=== PATIENT | female | born 1970 | race Caucasian/White ===

== ENCOUNTER 2019-07-20 13:21 | Emergency (ER) | payer MEDICAID ==
[~2019-07-20] VITALS: Ht 160 cm; Wt 99.2 kg
[~2019-07-20 13:21] MED LIST: LEVO300T6 PO; LORA-269 PO; LURA80TA3 PO; ZOLP10TA PO
[2019-07-20] MEDS ORDERED: LORazepam 1 MG tablet PO ONE (14:30)
[2019-07-20 14:51] LABS: URINE HCG NEGATIVE (NEG)
[2019-07-20 14:51] LABS: BASOPHILS # (AUTO) 0.1 X10'3 (0-0.2); BASOPHILS % (AUTO) 0.8 % (0-1); EOSINOPHILS # (AUTO) 0.3 X10'3 (0-0.9); EOSINOPHILS % (AUTO) 2.9 % (0-6); HEMATOCRIT 39.3 % (35.0-45.0); LYMPHOCYTES # (AUTO) 2.6 X10'3 (1.1-4.8); LYMPHOCYTES % (AUTO) 29.3 % (21-51); MEAN CORPUSCULAR HEMOGLOBIN 28.1 PG (27.0-31.0); MEAN CORPUSCULAR HGB CONC 33.1 g/dL (33.0-36.5); MEAN CORPUSCULAR VOLUME 84.8 FL (78-98); MEAN PLATELET VOLUME 7.5 FL (7.4-10.4); MONOCYTES # (AUTO) 0.4 X10'3 (0-0.9); NEUTROPHILS # (AUTO) 5.5 X10'3 (1.8-7.7); PLATELET COUNT 347 X10'3 (140-440); RED BLOOD COUNT 4.63 X10'6 (4.20-5.60); RED CELL DISTRIBUTION WIDTH 16.5 % (11.5-14.5); WHITE BLOOD COUNT 8.8 X10'3 (4.5-11.0)
[2019-07-20 14:56] LABS: URINE AMPHETAMINE SCREEN POSITIVE (Neg); URINE BARBITUATE SCREEN NEGATIVE (Neg); URINE BENZODIAZEPINES SCREEN POSITIVE (Neg); URINE CANNABINOID SCREEN POSITIVE (Neg); URINE COCAINE SCREEN NEGATIVE (Neg); URINE METHADONE SCREEN NEGATIVE (Neg); URINE OPIATE SCREEN NEGATIVE (Neg); URINE PHENCYCLIDINE SCREEN NEGATIVE (Neg)
--- NOTE | 2019-07-20 15:01 | NUR ---
PT WAS QUIETLY SLEEPING. NO ACUTE DISTRESS NOTED AT THIS TIME
[2019-07-20 15:05] LABS: ALANINE AMINOTRANSFERASE 20 U/L (12-78); ALBUMIN 3.5 G/DL (3.4-5.0); ALBUMIN/GLOBULIN RATIO 0.9 (1.1-1.5); ALKALINE PHOSPHATASE 83 IU/L (46-116); ANION GAP 4 (8-16); ASPARTATE AMINO TRANSFERASE 14 U/L (10-37); BILIRUBIN,TOTAL 0.1 MG/DL (0.1-1.0); BLOOD UREA NITROGEN 10 MG/DL (7-18); BUN/CREATININE RATIO 11.4 (6.6-38.0); CALCIUM 8.7 MG/DL (8.5-10.1); CHLORIDE 109 MMOL/L (99-107); CREATININE 0.88 MG/DL (0.40-0.90); GLUCOSE 75 MG/DL (70-104); POTASSIUM 3.6 MMOL/L (3.5-5.1); SODIUM 144 MMOL/L (135-145); TOTAL CARBON DIOXIDE 31.1 MMOL/L (24-32); TOTAL PROTEIN 7.3 G/DL (6.4-8.2); eGFR 69 ML/MIN
--- NOTE | 2019-07-20 15:08 | NUR ---
PT STATES, IM OUT OF MEDS, THEY WERE LOST OR STOLEN. WHEN ASKED WHAT YOUR PLAN IS. PT STATES, I JUST WANT TO DRIVE AWAY AND NEVER COME BACK.
[2019-07-20 15:15] LABS: ETHANOL < 0.010 GM/DL (0.0-0.010)
--- NOTE | 2019-07-20 19:34 | NUR ---
pt up ambulating to the br. requested a nicotine patch. will let doc know.
[2019-07-20] MEDS ORDERED: nicotine 14mg patch - 24hr TD ONE (19:45)
--- NOTE | 2019-07-20 20:00 | NUR ---
spoke with dr. teefs please see new orders.
[2019-07-20] MEDS ORDERED: CLON-528 PO (20:13)
[2019-07-20] MEDS ORDERED: PARO-62 PO (20:13)
[2019-07-20] MEDS ORDERED: clonazePAM 0.5mg tablet PO PRN ×2 (20:25→20:30)
[2019-07-20] MEDS ORDERED: zolpidem 5mg tablet PO PRN ×2 (20:25→20:31)
[2019-07-20] MEDS ORDERED: non-formulary drug (Zolpidem Tartrate (Ambien) 1 TAB) PO PRN (20:30)
[2019-07-21 00:51] LABS: CLARITY,URINE CLEAR (Clear); COLOR,URINE YELLOW (Yellow); GLUCOSE, URINE NEGATIVE (Neg); KETONES,URINE NEGATIVE (Neg); LEUKOCYTE ESTERASE ,URINE TRACE (Neg); NITRITES, URINE NEGATIVE (Neg); OCCULT BLOOD,URINE NEGATIVE (Neg); PROTEIN,URINE NEGATIVE (Neg); UROBILINOGEN,URINE 0.2 E.U/dL (0.2-1.0)
[2019-07-21 00:56] LABS: UA COLLECTION TYPE NON-SPECIFIED
[2019-07-21 00:57] LABS: AMORPHOUS PHOSPHATES 1+; BACTERIA,URINE NONE SEEN /HPF (Neg); MUCUS STRANDS NONE SEEN /LPF (Neg); RBC,URINE NONE SEEN /HPF (0-2); SQUAMOUS EPITHELIAL CELL,UR MANY /LPF (FEW); WBC,URINE 0-4 /HPF (0-4)
[2019-07-21 05:46] VITALS: BP 96/54
[2019-07-21] MEDS ORDERED: levoTHYROXINE 100mcg tablet PO SCH (07:00)
[2019-07-21] MEDS ORDERED: PARoxetine 20mg tablet PO SCH ×2 (08:00)
[2019-07-21] MEDS ORDERED: LEVOTHYROXINE SODIUM PO SCH (08:00)
[2019-07-21] MEDS ORDERED: nicotine 21mg patch - 24 hr TD ONE (09:50)
--- NOTE | 2019-07-21 09:55 | NUR ---
Nicotine patch from last night on left arm is currently off.
[2019-07-21] MEDS ORDERED: LEVO100T PO (23:16)
[2019-07-22] MEDS ORDERED: CITA10TA9 PO (15:25)
== END 2019-07-21 11:31 | disposition home or self-care (01) ==
LOC: ER 13:22
DX: F41.9 Anxiety disorder, unspecified (principal); R45.851 Suicidal ideations; K21.9 Gastro-esophageal reflux disease without esophagitis; E03.9 Hypothyroidism, unspecified; F31.9 Bipolar disorder, unspecified; F17.210 Nicotine dependence, cigarettes, uncomplicated; F10.99 Alcohol use, unspecified with unspecified alcohol-induced disorder; F15.90 Other stimulant use, unspecified, uncomplicated; Z88.6 Allergy status to analgesic agent; Z79.899 Other long term (current) drug therapy; Z59.0 Homelessness; Y90.0 Blood alcohol level of less than 20 mg/100 ml
CPT/HCPCS: 36415; 80053; 80305; 80320; 81001; 81025; 84443; 85025; 99285

== ENCOUNTER 2019-07-21 11:16 | Inpatient (IN) | payer MEDICAID ==
[~2019-07-21] VITALS: Ht 160 cm; Wt 98.6 kg
[~2019-07-21 11:16] MED LIST changes: +CLON-528 PO; -LORA-269 PO; -LURA80TA3 PO; +PARO-62 PO
[2019-07-21] MEDS ORDERED: mag hydrox/Alum hydrox/simeth 30ml oral suspension PO PRN (12:15)
[2019-07-21] MEDS ORDERED: acetaminophen 325mg tablet PO PRN (12:15)
[2019-07-21] MEDS ORDERED: loperamide 2mg capsule PO PRN (12:15)
[2019-07-21 13:30] VITALS: BP 149/98
[2019-07-21] MEDS: LORazepam 1 MG tablet PO PRN ×2 (13:58→20:29)
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
[2019-07-21 20:00] VITALS: BP 100/79
[2019-07-21] MEDS: NICOTINE POLACRILEX 2 MG LOZENGE MM PRN (20:30)
[2019-07-21] MEDS ORDERED: clonazePAM 0.5mg tablet PO PRN (23:00)
[2019-07-21] MEDS ORDERED: zolpidem 5mg tablet PO PRN (23:00)
[2019-07-21] MEDS ORDERED: LEVO100T PO (23:16)
--- NOTE | 2019-07-22 00:48 | NUR ---
NEW ADMIT NURSING PROGRESS REPORT Legal hold: 5150 Client on involuntary status for DTS Report received from nurse with use of SBAR: Dariusz RN Why are they here: Patient placed on 5150 hold for DTS after stating that she is suicidal with a plan to drive her car off a [place] and [place] the [place]. Patient drove herself to the ER reporting that she had been anxious for 3 days, quit taking her medications, and is suicidal with a plan. What Happened this shift: Patient is in her room at the change of shift sleeping. She isolates to her room only coming out to eat a snack in the group room this evening. She is cooperative to finish her admission and to do an assessment. Patient presents as fatigued but is alert and oriented. She reports SI and depression. When asked about onset of her current SI and Depressive symptoms patient reports she has been like this "Since I was born." She reports not ever feeling anything but depressed. She contracts for safety here on the unit and reports that she wants help to feel better. She requests an Ativan for anxiety, and then goes to bed after her medication and eating a snack. S/I, H/I: Positive SI, contracts for safety A/VH: Denies Sleep: N/A ADL's: Independent Group attendance: No groups this shift Were meds taken: Yes Any med S/E: None noted or observed Mental Status Exam Appearance: Unkempt Eye contact: Direct Behavior: Anxious, depressed Speech: soft tone, normal rate and rhythm Mood: Depressed Affect: Congruent to mood Thought process: Linear Thought Content: No delusional thought content present. Cognition: A&Ox4 Insight: Fair, patient understands her illness Judgment: Poor Interventions PRN's used: Ativan, Nicotine Therapeutic interventions: Therapeutic interventions: Continued therapeutic support and medication management needed to provide stabilization. 1:1 assessment with patient, provide active listening and therapeutic milieu. Restraints/seclusion/emergency medication: N/A Justification of Continued Inpatient Treatment: Pt. unable to formulate a viable plan for food, correction and clothing. Currently she is reporting S/I. Continued therapeutic support and medication management needed to provide stabilization, prevent decompensation, improve coping mechanisms decreasing risk to patient and re-admittance.
[2019-07-22] MEDS ORDERED: levoTHYROXINE 100mcg tablet PO SCH (07:30)
[2019-07-22 07:57] LABS: HEMOGLOBIN A1C 5.8 % (4.5-6.2)
[2019-07-22 08:00] VITALS: BP 104/63
[2019-07-22] MEDS ORDERED: PARoxetine 20mg tablet PO SCH (08:00)
[2019-07-22 08:12] LABS: CHOL/HDL RATIO 4.2 (0.00-4.99); CHOLESTEROL 203 MG/DL (0-200); HDL CHOLESTEROL 48 MG/DL (35-60); LDL CHOLESTEROL 136 MG/DL (50-100); TRIGLYCERIDES 126 MG/DL (20-135)
[2019-07-22] MEDS: nicotine 21mg patch - 24 hr TD SCH (08:13)
[2019-07-22] MEDS: LORazepam 1 MG tablet PO PRN ×2 (08:30→17:26)
[2019-07-22] MEDS: acetaminophen 325mg tablet PO PRN ×2 (13:23→19:43)
--- NOTE | 2019-07-22 14:19 | NUR ---
NURSING PROGRESS REPORT : [place] Legal hold: 5150 Client on involuntary status for DTS Report received from Es Why are they here: Patient placed on 5150 hold for DTS after stating that she is suicidal with a plan to drive her car off a [place] and [place]. Patient drove herself to the ER reporting that she had been anxious for 3 days, quit taking her medications, and is suicidal with a plan. What Happened this shift: Client was in bed to start the shift with her eyes closed. Respirations were even and unlabored, Client stated, " I need Ativan, I am stressed out"' 1 MG of Ativan this am with good effect noted. Client had an outburst around 1100 hours this am, She stated, " I wish I had a noose, I would jump in that motherfucker". Client allowed to vent her frustration and was encouraged to approach staff with any further problems. Client was able to calm and control herself after given time to process her situation. Client needs to place a phone call regarding her income. (1124 hours) Client is in bed with eyes closed and respirations even and unlabored. No further complaints noted. Client continues to request prn medications for, "stress". She has been informed that there is a waiting period between doses but she does not appear to understand but info will be reinforced as needed. Client obtained phone this afternoon and made repeat phone calls to Administration as well as front office assistant to ask to go to her car to , "get Tylenol". Client was given a prn of Tylenol and she went back to her bed where she is currently resting. Denial of Rights ordered due to abuse of the phone system. Client remains in bed with eyes closed. Q15 minute checks for safety being conducted. S/I, H/I: see progress note. A/VH: Denies Sleep: N/A: ADL's: Independent Group attendance: no Were meds taken: Yes Any med S/E: None noted or observed Mental Status Exam Appearance: Unkempt Eye contact: indirect Behavior: Anxious, depressed Speech: soft tone, normal rate and rhythm Mood: Depressed Affect: Congruent to mood Thought process: Linear Thought Content: No delusional thought content present. Cognition: A&Ox4 Insight: Poor Judgment: Poor Interventions PRN's used: Ativan, Tylenol Therapeutic interventions: Therapeutic interventions: Continued therapeutic support and medication management needed to provide stabilization. 1:1 assessment with patient, provide active listening and therapeutic milieu. Restraints/seclusion/emergency medication: N/A Justification of Continued Inpatient Treatment: Pt. unable to formulate a viable plan for food, intermediate and clothing. Currently she is reporting S/I. Continued therapeutic support and medication management needed to provide stabilization, prevent decompensation, improve coping mechanisms decreasing risk to patient and re-admittance.
[2019-07-22] MEDS ORDERED: CITA10TA9 PO (15:25)
[2019-07-22 20:00] VITALS: BP 112/63
[2019-07-22] MEDS ORDERED: mirtazapine 15mg tablet PO SCH (21:00)
[2019-07-22] MEDS: magnesium hydroxide 30ml (MOM) UD suspension PO PRN (21:21)
[2019-07-22] MEDS: QUEtiapine 25mg tablet PO SCH (21:39)
--- NOTE | 2019-07-23 02:38 | NUR ---
NURSING PROGRESS REPORT: Legal hold: 5150 Client on involuntary status for DTS Report received from KVNG Klein via SBAR Why are they here: Patient placed on 5150 hold for DTS after stating that she is suicidal with a plan to drive her car [place] a [place] and [place]. Patient drove herself to the ER reporting that she had been anxious for 3 days, quit taking her medications, and is suicidal with a plan. What Happened this shift: Client on phone at change of shift. MD Raza granted phone privileges since the pt calm down since the afternoon. Pt stated she was SI because she couldn't take the heat anymore (she homeless) and wanted to because of it. Pt states she is doing much better today, but continues to feel sad. Pt requested Tylenol for headache which was given to good effect. {t stated she isn't sleeping well; sleep aid received from .Pt attended HS Snack, then took a shower before retiring to bed. JESSICA scanner not functioning properly thus medications had to be administered via mouse click. S/I, H/I: Denies A/VH: Denies Sleep: See Sleep Assessment ADL's: Independent Group attendance: N/A Were meds taken: Yes Any med S/E: None noted or observed Mental Status Exam Appearance: Clean, wearing unit scrubs. Pt showered. Eye contact: Direct Behavior: Isolates to room, talking on phone Speech: soft tone, normal rate and rhythm Mood: Depressed, "better" Affect: Blunted with brightening Thought process: Linear Thought Content: No delusional thought content present. Cognition: A&Ox4 Insight: Poor Judgment: Poor Interventions PRN's used: Seroquel, Tylenol, MOM Therapeutic interventions: Therapeutic interventions: Continued therapeutic support and medication management needed to provide stabilization. 1:1 assessment with patient, provide active listening and therapeutic milieu. Restraints/seclusion/emergency medication: N/A Justification of Continued Inpatient Treatment: Pt. unable to formulate a viable plan for food, intermediate and clothing. Currently she is reporting S/I. Continued therapeutic support and medication management needed to provide stabilization, prevent decompensation, improve coping mechanisms decreasing risk to patient and re-admittance.
[2019-07-23 07:49] VITALS: BP 99/72
[2019-07-23] MEDS ORDERED: CITALOpram 10mg tablet PO SCH (08:00)
[2019-07-23] MEDS: nicotine 21mg patch - 24 hr TD SCH (08:00)
[2019-07-23] MEDS: levoTHYROXINE 25mcg tablet PO SCH (09:09)
[2019-07-23] MEDS: PARoxetine 20mg tablet PO SCH (09:10)
[2019-07-23] MEDS: LORazepam 1 MG tablet PO PRN (10:36)
[2019-07-23] MEDS: acetaminophen 325mg tablet PO PRN (10:38)
[2019-07-23] MEDS: NICOTINE POLACRILEX 2 MG LOZENGE MM PRN (10:59)
--- NOTE | 2019-07-23 16:59 | NUR ---
NURSING PROGRESS REPORT Legal hold: 5150 Client on involuntary status for DTS Report received from SD Calvillo Why are they here: Patient placed on 5150 hold for DTS after stating that she is suicidal with a plan to drive her car off a [place] and [place]. Patient drove herself to the ER reporting that she had been anxious for 3 days, quit taking her medications, and is suicidal with a plan. What Happened this shift: Received Pt in bed sleeping w/o distress at change of shift. She awoke for breakfast and returned to bed. Overall pleasant and cooperative and willing to engage in conversation although c/o CLAIRE r/t caffeine withdrawal. Discussed what could be affecting her CLAIRE and she received tylenol PRN and ice pack for her head with good effect, along with rest. Pt also recieved Ativan PRN for morning anxiety with good effect. She awoke again for lunch and returned to bed. Did not attend groups although encouraged to do so. Reports CLAIRE better in late afternoon and looking forward to a visitor tonite. Denies current SI or HI. Smiling and pleasant by end of shift, yet affect restricted and depressed about life circumstances. S/I, H/I: see progress note. A/VH: Denies Sleep: N/A: ADL's: Independent Group attendance: No Were meds taken: Yes Any med S/E: None noted or observed Mental Status Exam Appearance: Unkempt in green scrubs Eye contact: indirect Behavior: Anxious, depressed Speech: soft tone, normal rate and rhythm Mood: Depressed Affect: Congruent to mood Thought process: Linear, concerned about CLAIRE Thought Content: No delusional thought content present. Cognition: A&Ox4 Insight: Poor Judgment: Poor Interventions PRN's used: Ativan, Tylenol Therapeutic interventions: Therapeutic interventions: Continued therapeutic support and medication management needed to provide stabilization. 1:1 assessment with patient, provide active listening and therapeutic milieu. Restraints/seclusion/emergency medication: N/A Justification of Continued Inpatient Treatment: Pt. unable to formulate a viable plan for food, jail and clothing. Currently she is reporting S/I. Continued therapeutic support and medication management needed to provide stabilization, prevent decompensation, improve coping mechanisms decreasing risk to patient and re-admittance.
[2019-07-23 19:57] VITALS: BP 112/88
[2019-07-23] MEDS: QUEtiapine 25mg tablet PO SCH (20:44)
--- NOTE | 2019-07-24 02:17 | NUR ---
NURSING PROGRESS REPORT Legal hold: 5150 Client on involuntary status for DTS Report received from SD Klein Why are they here: Patient placed on 5150 hold for DTS after stating that she is suicidal with a plan to drive her car [place] and [place]. Patient drove herself to the ER reporting that she had been anxious for 3 days, quit taking her medications, and is suicidal with a plan. What Happened this shift: Pt in group room watching TV and change of shift;pt went between room to rest and group room to engage with some peers. Stated she had a sleepy day and that her mom and best friend visited; the visit went well and the pt feels they are a strong support system for her. States her depression is less today at 4/10 but her anxiety is persistent and increased at 6/10; anxiety is generalized and pt is unable to determine exact trigger but states she is at an overwhelm with her current life circumstances. RN encouraged pt to attend groups tomorrow and/or go outside. Pt states she will try as she does find she learns something about herself. Pt retired to bed after medication administration. S/I, H/I: Denies A/VH: Denies Sleep: See Sleep Assessment ADL's: Independent Group attendance: N/A Were meds taken: Yes Any med S/E: None noted or observed Mental Status Exam Appearance: Disheveled hair, green scrubs, nonskid socks Eye contact: Intermittent Behavior: Watching TV, Resting in room Speech: soft tone, normal rate and rhythm Mood: Depressed and anxious Affect: Constricted with some brightening Thought process: Linear Thought Content: No delusional thought content present. Cognition: A&Ox4 Insight: Poor Judgment: Poor to fair Interventions PRN's used: None Therapeutic interventions: Therapeutic interventions: Continued therapeutic support and medication management needed to provide stabilization. 1:1 assessment with patient, provide active listening and therapeutic milieu. Restraints/seclusion/emergency medication: N/A Justification of Continued Inpatient Treatment: Pt continues to present with depression and anxiety. Continued therapeutic support and medication management needed to provide stabilization, prevent decompensation, improve coping mechanisms decreasing risk to patient and re-admittance.
[2019-07-24 07:32] VITALS: BP 116/78
[2019-07-24] MEDS: nicotine 21mg patch - 24 hr TD SCH (08:00)
[2019-07-24] MEDS: levoTHYROXINE 25mcg tablet PO SCH (08:12)
[2019-07-24] MEDS: PARoxetine 20mg tablet PO SCH (08:12)
[2019-07-24] MEDS: magnesium hydroxide 30ml (MOM) UD suspension PO PRN ×2 (08:20→20:56)
[2019-07-24] MEDS: LORazepam 1 MG tablet PO PRN (09:54)
--- NOTE | 2019-07-24 10:45 | NUR ---
NURSING PROGRESS REPORT Legal hold: 5250 Client on involuntary status for DTS Report received from SD Suggs Why are they here: Patient placed on 5150 hold for DTS after stating that she is suicidal with a plan to drive her car [place]. Patient drove herself to the ER reporting that she had been anxious for 3 days, quit taking her medications, and is suicidal with a plan. What Happened this shift: Pt stated that she is "feeling a little better." Pt denied SI, HI/AH/VH. Pt c/o constipation stated she had a small BM last night, "I'm stuffed." Administered prn MOM at 0820. Pt c/o feeling tired from the Seroquel last night. At 0930, pt c/o having a panic attack to another RN who administered prn Ativan. This RN went to reassess the pt a little while later. She stated that mornings are bad for her because she sits there and thinks about the day and the things she should be doing, "I should be doing this, I should be doing that" and gets overwhelmed. Pt was placed on a 5250 this morning, she states she is fine with staying here longer. Pt refused her nicotine patch this morning, stating she doesn't feel like she was all that addicted to cigarettes, pt states she is fine with prn Nicotine lozenges, routine nicotine patch D/c'd. S/I, H/I: Pt denies A/VH: Pt denies Sleep: Slept 7.5 hours per noc shift report ADL's: Independent Group attendance: plans to attend groups today Were meds taken: Yes Any med S/E: Pt c/o feeling tired from Seroquel last night Mental Status Exam Appearance: Disheveled hair, green scrubs, nonskid socks Eye contact: Good Behavior: Pleasant, cooperative, had increased anxiety/panic attack. Speech: clear, audible Mood: "better" though had anxiety attack this am Affect: calm until anxiety attack Thought process: Linear Thought Content: doesn't want/need nicotine patch, mornings are bad, feels overwhelmed, content with staying here longer Cognition: A&Ox4 Insight: Fair Judgment: Fair Interventions PRN's used: MOM, Ativan Therapeutic interventions: 1:1 assessment, establishment of rapport, active listening, therapeutic conversation, medication administration/education/monitoring, encouragement to attend groups, Q 15 min safety checks. Restraints/seclusion/emergency medication: N/A Justification of Continued Inpatient Treatment: Pt continues to present with depression and anxiety attacks. Continued therapeutic support and medication management needed to provide stabilization, prevent decompensation, improve coping mechanisms decreasing risk to patient and re-admittance.
[2019-07-24] MEDS: NICOTINE POLACRILEX 2 MG LOZENGE MM PRN (18:27)
[2019-07-24 20:09] VITALS: BP 139/97
[2019-07-24] MEDS: QUEtiapine 25mg tablet PO SCH (20:48)
--- NOTE | 2019-07-24 22:50 | NUR ---
NURSING PROGRESS REPORT Legal hold: 5250 Client on involuntary status for DTS Report received from SD Klein Why are they here: Patient placed on 5150 hold for DTS after stating that she is suicidal with a plan to drive her car off a [place] and [place]. Patient drove herself to the ER reporting that she had been anxious for 3 days, quit taking her medications, and is suicidal with a plan. What Happened this shift: Pt visited with SW this evening then watched some TV before returning to her room. She stated her morning was rough, but that she knows she needs to learn to manage her anxiety better. RN discussed importance of attending groups to gain new and reinforce old skills sets for coping. Pt verbalized understanding and stated "I will really go to groups tomorrow. I know I need to do it." Pt reports her anxiety is 7/10 and depression 3/10. She is feeling hopeful that she will have time to "get my life in order" with the additional hold. Pt requested MOM because she is passing small, hard stool and feels like she is not fully evacuating. Medication compliant and retired to bed shortly after administration. S/I, H/I: Pt denies A/VH: Pt denies Sleep: See Sleep Assessment ADL's: Independent Group attendance:N/A Were meds taken: Yes Any med S/E: Pt c/o feeling tired from Seroquel Mental Status Exam Appearance: Disheveled hair, green scrubs, nonskid socks Eye contact: Good Behavior: Cooperative, Watching TV, Resting in room Speech: clear, audible Mood:"Okay now", hopeful Affect: Constricted with brightening Thought process: Linear Thought Content: happy to stay to work on coping skills, feeling overwhelmed, needing to attend groups Cognition: A&Ox4 Insight: Fair Judgment: Fair Interventions PRN's used: MOM Therapeutic interventions: 1:1 assessment, establishment of rapport, active listening, therapeutic conversation, medication administration/education/monitoring, encouragement to attend groups, Q 15 min safety checks. Restraints/seclusion/emergency medication: N/A Justification of Continued Inpatient Treatment: Pt continues to present with depression and anxiety attacks. Continued therapeutic support and medication management needed to provide stabilization, prevent decompensation, improve coping mechanisms decreasing risk to patient and re-admittance.
[2019-07-25] MEDS: levoTHYROXINE 25mcg tablet PO SCH (07:52)
[2019-07-25] MEDS: PARoxetine 20mg tablet PO SCH (07:53)
[2019-07-25 08:00] VITALS: BP 109/68
--- NOTE | 2019-07-25 14:09 | NUR ---
NURSING PROGRESS REPORT Legal hold: 5250 Client on involuntary status for DTS Report received from Nelia Garcia RN Why are they here: Patient placed on 5150 hold for DTS after stating that she is suicidal with a plan to drive her car off [place]. Patient drove herself to the ER reporting that she had been anxious for 3 days, quit taking her medications, and is suicidal with a plan. What Happened this shift: Pt rated her depression and anxiety today at a 5/10, she denied SI/HI/AH/VH. Pt requested prn Klonopin 0.5 mg at 0755 with good effect. Pt is cooperative though mostly isolative to self, no unsafe behaviors noted. S/I, H/I: Pt denies A/VH: Pt denies Sleep: Slept 9.25 hours per noc shift report ADL's: Independent Group attendance: Yes Were meds taken: Yes Any med S/E: Pt continues to appear fatigued though no side effects reported. Mental Status Exam Appearance: Hair pulled back in a bun, green scrubs, nonskid socks Eye contact: Good Behavior: cooperative, mostly isolative to self Speech: clear, audible Mood: Depressed, anxious Affect: Fatigued, blunted Thought process: Linear Thought Content: Pt is no longer constipated Cognition: A&Ox4 Insight: Fair Judgment: Fair Interventions PRN's used: Klonopin 0.5 mg Therapeutic interventions: 1:1 assessment, encouragement to express thoughts and feelings, encouragement to attend groups, medication administration/education/monitoring, Q 15 min safety checks. Restraints/seclusion/emergency medication: N/A Justification of Continued Inpatient Treatment: Pt continues to present with depression and anxiety. Continued therapeutic support and medication management needed to provide stabilization, prevent decompensation, improve coping mechanisms decreasing risk to patient and re-admittance.
[2019-07-25] MEDS: NICOTINE POLACRILEX 2 MG LOZENGE MM PRN (15:29)
[2019-07-25] MEDS: LORazepam 1 MG tablet PO PRN (15:29)
[2019-07-25 19:57] VITALS: BP 115/81
[2019-07-25] MEDS: polyethylene glycol 3350 17gm powd pack PO SCH (21:09)
[2019-07-25] MEDS: QUEtiapine 25mg tablet PO SCH (21:10)
--- NOTE | 2019-07-25 22:49 | NUR ---
NURSING PROGRESS REPORT Legal hold: 5250 Client on involuntary status for DTS Report received from SD Klein Why are they here: Patient placed on 5150 hold for DTS after stating that she is suicidal with a plan to drive her car off a [place] and [place]. Patient drove herself to the ER reporting that she had been anxious for 3 days, quit taking her medications, and is suicidal with a plan. What Happened this shift: Pt states the morning is the worst for her depression and anxiety but that they both dwindle to manageable levels by the evening. Pt attended group today and utilized the wellness roadmap presented in class; "it gives me a reference of my goals". Pt is thinking about her future and discharge, verbalizing she is "getting her life in order, finally". Pt is isolative to room for majority of the shift stating 'I'm just tired all the time." Pt continues to pass hard, small stool but feels like she is constipated- Miralax started this evening. Pt is medication compliant and went to sleep shortly after administration. S/I, H/I: Pt denies A/VH: Pt denies Sleep: See Sleep Assessment ADL's: Independent Group attendance: N/A Were meds taken: Yes Any med S/E: None reported, Fatigue observed Mental Status Exam Appearance: Hair pulled back in a bun, green scrubs, Nonskid socks Eye contact: Direct Behavior: Resting in room, Attending snack Speech: Clear, audible Mood: Depressed 3/10, Anxious 3/10 Affect: Constricted with brightening Thought process: Linear Thought Content: Looking towards future plans of owning a trailer, managing anxiety Cognition: A&Ox4 Insight: Fair Judgment: Fair Interventions PRN's used: None Therapeutic interventions: 1:1 assessment, encouragement to express thoughts and feelings, encouragement to attend groups, medication administration/education/monitoring, Q 15 min safety checks. Restraints/seclusion/emergency medication: N/A Justification of Continued Inpatient Treatment: Pt continues to present with depression and anxiety with recent medication changes. Continued therapeutic support and medication management needed to provide stabilization, prevent decompensation, improve coping mechanisms decreasing risk to patient and re-admittance.
[2019-07-26 08:00] VITALS: BP 117/85
[2019-07-26] MEDS: PARoxetine 20mg tablet PO SCH (08:14)
[2019-07-26] MEDS: levoTHYROXINE 25mcg tablet PO SCH (08:14)
[2019-07-26] MEDS: LORazepam 1 MG tablet PO PRN (09:49)
--- NOTE | 2019-07-26 11:01 | NUR ---
Eating well, average PO intake 75-100% of regular meals and is meeting needs. Taking miralax HS for constipation. Wt stable. Will continue to follow. Recommend: 1. continue regular diet 2. continue bowel care 3. weekly wts Addendum: 07/26/19 at [address] Amended: Links added.
--- NOTE | 2019-07-26 14:06 | NUR ---
NURSING PROGRESS REPORT Legal hold: 5250 Client on involuntary status for DTS Report received from SD Grover Why are they here: Patient placed on 5150 hold for DTS after stating that she is suicidal with a plan to drive her car off a [place] and [place]. Patient drove herself to the ER reporting that she had been anxious for 3 days, quit taking her medications, and is suicidal with a plan. What Happened this shift: Pt rated her depression at a 7/10 today, indicates that she is having SI with no plan here, "I can't get to my car." Pt rated her anxiety level at a 5/10. She c/o feeling fatigued in the mornings and re-emphasized that her depression is always worse in the morning and tends to subside some throughout the day. Pt requested prn Ativan 1 mg at 0949. Pt is out of her room for meals and groups, socializes with select peers. S/I, H/I: Pt having some SI with no plan here. A/VH: Pt denies Sleep: Slept 9 hours per noc shift report ADL's: Independent Group attendance: Yes Were meds taken: Yes Any med S/E: Pt continues to c/o fatigue every morning Mental Status Exam Appearance: Hair pulled back in a bun, green scrubs, nonskid socks Eye contact: Good Behavior: out of room more, socializing with select peers though continues to be mostly isolative to self Speech: Clear, audible Mood: Depressed, anxious Affect: Fatigued, blunted Thought process: Linear Thought Content: hopeless, feels tired Cognition: A/O x 4 Insight: Fair Judgment: Fair Interventions PRN's used: Ativan 1 mg Therapeutic interventions: 1:1 assessment, encouragement to express thoughts and feelings, encouragement to attend groups, medication administration/education/monitoring, Q 15 min safety checks. Restraints/seclusion/emergency medication: N/A Justification of Continued Inpatient Treatment: Pt continues to present with depression, intermittent SI, and anxiety. Continued therapeutic support and medication management needed to provide stabilization, improve coping mechanisms & prevent decompensation, decreasing risk to patient and re-admittance.
[2019-07-26] MEDS: cloNIDine 0.1 mg tablet PO PRN (16:46)
[2019-07-26 16:50] VITALS: BP 121/88
[2019-07-26] MEDS: NICOTINE POLACRILEX 2 MG LOZENGE MM PRN (18:01)
[2019-07-26 20:00] VITALS: BP 115/75
[2019-07-26] MEDS: polyethylene glycol 3350 17gm powd pack PO SCH (20:41)
[2019-07-26] MEDS: QUEtiapine 25mg tablet PO SCH (20:42)
--- NOTE | 2019-07-27 02:26 | NUR ---
NURSING PROGRESS REPORT Legal hold: 5250 Client on involuntary status for DTS Report received from SD Klein Why are they here: Patient placed on 5150 hold for DTS after stating that she is suicidal with a plan to drive her car off a [place] and [place]. Patient drove herself to the ER reporting that she had been anxious for 3 days, quit taking her medications, and is suicidal with a plan. What Happened this shift: Pt states today was more difficult than the previous few days with feelings of SI returning during the day, although pt denied such thoughts this evening. When asked to reflect on what could have caused this shift, pt stated her overwhelming anxiety in the morning makes her very depressed, and she had grown concerned that the new anti-anxiety medication would not alleviate her symptoms (she verbalized that it did). She states she always becomes nervous when trying a new med. Pt had a conversation with a friend today that also stirred negative emotions-- RN advised to approach this particular friendship judiciously and reflect as to why a conversation has caused such a significant increase in overall depression and anxiety. "I know it is not the healthiest for me, I am working on it, you are right that I should focus more on myself." Pt continues to attend groups and states "This group was particularly good because it focused on boundaries and I need to learn those." Pt continues to present with fatigue and rested in room majority of shift except for a small window where she watched TV before grabbing a snack. Pt is medication compliant and went to sleep shortly after administration. S/I, H/I: Pt denies A/VH: Pt denies Sleep: See Sleep Assessment ADL's: Independent Group attendance: N/A Were meds taken: Yes Any med S/E: None reported, Fatigue observed Mental Status Exam Appearance: Hair pulled back in a bun, green scrubs, Nonskid socks Eye contact: Direct Behavior: Resting in room, Attending snack Speech: Clear, audible Mood: Depressed 6/10, Anxious 5/10 Affect: Constricted with brightening Thought process: Linear Thought Content: Looking towards future plans of owning a trailer, managing anxiety Cognition: A&Ox4 Insight: Fair to good Judgment: Fair Interventions PRN's used: None Therapeutic interventions: 1:1 assessment, encouragement to express thoughts and feelings, encouragement to attend groups, medication administration/education/monitoring, Q 15 min safety checks. Restraints/seclusion/emergency medication: N/A Justification of Continued Inpatient Treatment: Pt continues to present with depression and anxiety with recent medication changes. Continued therapeutic support and medication management needed to provide stabilization, prevent decompensation, improve coping mechanisms decreasing risk to patient and re-admittance.
[2019-07-27] MEDS: levoTHYROXINE 25mcg tablet PO SCH ×2 (06:16→08:00)
[2019-07-27 07:41] VITALS: BP 113/77
[2019-07-27 08:00] VITALS: BP 113/77
[2019-07-27] MEDS: LORazepam 1 MG tablet PO PRN ×2 (09:16→18:39)
[2019-07-27] MEDS: PARoxetine 20mg tablet PO SCH (09:16)
[2019-07-27] MEDS: cloNIDine 0.1 mg tablet PO PRN (14:53)
--- NOTE | 2019-07-27 17:17 | NUR ---
NURSING PROGRESS REPORT Legal hold: 5150 Client on involuntary status for DTS Report received from SD Suggs Why are they here: Patient placed on 5150 hold for DTS after stating that she is suicidal with a plan to drive her car off a [place]. Patient drove herself to the ER reporting that she had been anxious for 3 days, quit taking her medications, and is suicidal with a plan. What Happened this shift: Received Pt in bed sleeping w/o distress at change of shift. She awoke for breakfast and returned to bed. She continues to be pleasant and cooperative and willing to engage in conversation. Pt recieved Ativan and clonidine PRN for anxiety in the AM and afternoon respectfully with good effect. Did not attend groups although encouraged to do so. Pt reports passive SI and feels she needs to stay at [facility] longer, although concerned about needing to take care of people she knows in community. Encouraged to focus on what she needs and getting well. Attended 5250 hearing during which she stated she wants to stay on [facility]. She returned to bed after hearing, where she spends most of free time. S/I, H/I: SI A/VH: Denies Sleep: N/A: ADL's: Independent Group attendance: No Were meds taken: Yes Any med S/E: None noted or observed Mental Status Exam Appearance: Unkempt in green scrubs Eye contact: indirect Behavior: Anxious, depressed Speech: soft tone, normal rate and rhythm Mood: Depressed Affect: Congruent to mood Thought process: Linear, concerned about CLAIRE Thought Content: No delusional thought content present. Cognition: A&Ox4 Insight: Poor Judgment: Poor Interventions PRN's used: Ativan, Clonidine Therapeutic interventions: Therapeutic interventions: Continued therapeutic support and medication management needed to provide stabilization. 1:1 assessment with patient, provide active listening and therapeutic milieu. Restraints/seclusion/emergency medication: N/A Justification of Continued Inpatient Treatment: Pt. unable to formulate a viable plan for food, long-term and clothing. Currently she is reporting S/I. Continued therapeutic support and medication management needed to provide stabilization, prevent decompensation, improve coping mechanisms decreasing risk to patient and re-admittance.
[2019-07-27 20:00] VITALS: BP 116/79
[2019-07-27] MEDS: polyethylene glycol 3350 17gm powd pack PO SCH (20:36)
[2019-07-27] MEDS: QUEtiapine 25mg tablet PO SCH (20:36)
[2019-07-27] MEDS: acetaminophen 325mg tablet PO PRN (20:37)
--- NOTE | 2019-07-27 23:03 | NUR ---
NURSING PROGRESS REPORT Legal hold: 5250 Client on involuntary status for DTS Report received from SD Klein Why are they here: Patient placed on 5150 hold for DTS after stating that she is suicidal with a plan to drive her car off a [place]. Patient drove herself to the ER reporting that she had been anxious for 3 days, quit taking her medications, and is suicidal with a plan. What Happened this shift: Patient in her room relaxing in bed at change of shift. Shortly after change of shift patient presents to this bid writer reporting anxiety and requesting an Ativan. Ativan is provided for patient. Patient is asked to describe her anxiety and why she thinks she is anxious. Patient reports it was due to her 5250. She states she has been on a 5250 before but she was never involved in the court process. She sad this stirred emotions and that "it was weird" and she was still trying to process it. She reports still feeling depressed, but denies any current SI at this time and states that her anxiety was what was really bothering her right now. Patient was able to talk through some of the emotions with this bid writer which seemed to help resolve a portion of her anxiety. She is complaint with all her HS medications and goes to bed shortly after medication pass. S/I, H/I: Denies A/VH: Denies Sleep: See Sleep Assessment, currently sleeping ADL's: Independent Group attendance: N/A Were meds taken: Yes Any med S/E: None reported, Fatigue observed Mental Status Exam Appearance: Unkempt, patient makeup smeared under her eyes. Eye contact: Direct Behavior: Resting in room, Attending snack Speech: Clear, audible Mood: Anxious, depressed Affect: Constricted Thought process: Linear Thought Content: Managing anxiety Cognition: A&Ox4 Insight: Fair to good Judgment: Fair Interventions PRN's used: Ativan Therapeutic interventions: 1:1 assessment, encouragement to express thoughts and feelings, encouragement to attend groups, medication administration/education/monitoring, Q 15 min safety checks. Restraints/seclusion/emergency medication: N/A Justification of Continued Inpatient Treatment: Pt continues to present with depression and anxiety with recent medication changes. Continued therapeutic support and medication management needed to provide stabilization, prevent decompensation, improve coping mechanisms decreasing risk to patient and re-admittance.
[2019-07-28 08:00] VITALS: BP 101/75
[2019-07-28] MEDS: PARoxetine 20mg tablet PO SCH (08:47)
[2019-07-28] MEDS: levoTHYROXINE 25mcg tablet PO SCH (08:47)
[2019-07-28] MEDS: LORazepam 1 MG tablet PO PRN ×2 (10:38→19:09)
[2019-07-28] MEDS: NICOTINE POLACRILEX 2 MG LOZENGE MM PRN ×2 (14:54→19:09)
--- NOTE | 2019-07-28 14:58 | NUR ---
NURSING PROGRESS NOTE Legal hold: 525 Client on involuntary status for DTS Report received from SD Suggs with use of SBAR Why are they here: Patient placed on 5150 hold for DTS after stating that she is suicidal with a plan to drive her car off [place]. Patient drove herself to the ER reporting that she had been anxious for 3 days, quit taking her medications, and is suicidal with a plan. What Happened this shift: Patient in her room sleeping at start of shift. Prior to breakfast pt c/o "pain 06/02." Ultram administered to pt. Pt cooperative during morning assessment. Pt shares with this tag writer her reasons for sleeping "all day, and isolating" are because "I'm overmedicated from the Seroquel." Collaborated with Dr. Sutherland; Seroquel decreased and Paxil order moved to [facility]. Pt up 2-3 times during the day requesting Ativan, Ultram and nicotine lozenges. Pt reports her mother bought her an RV now she needs to find a place to put it plus she has some paperwork the social media analyst, "Patria needs to fill out for me." S/I, H/I: Denies A/VH: Denies Sleep: Sleeps most of the day unless up for PRN's or to see doctors. ADL's: Independent Group attendance: PM group Were meds taken: Yes Any med S/E: Pt reports fatigue from HS Seroquel dosage decreased Mental Status Exam Appearance: Unkempt Eye contact: Direct Behavior: Isolates, sleeps attended one group today Speech: Clear, audible Mood: Anxious, depressed Affect: Constricted Thought process: Linear Thought Content: planning to live in an RV Cognition: A&Ox4 Insight: Good Judgment: Fair Interventions PRN's used: Ativan x1, Ultram x2, Nicotine lozenges x1 Therapeutic interventions: 1:1 assessment, therapeutic communication, w/active listening, encouragement to attend groups, medication administration/education/monitoring, Q 15 min safety checks. Restraints/seclusion/emergency medication: N/A Justification of Continued Inpatient Treatment: Pt continues to present with depression and anxiety with recent medication changes. Continued therapeutic support and medication management needed to provide stabilization, prevent decompensation, improve coping mechanisms decreasing risk to patient and re-admittance. Addendum: 07/28/19 at 1529 by Mary Sutherland RN Incorrect documentation of Ultram x2 which was given to another pt not this pt.
[2019-07-28 20:13] VITALS: BP 118/79
[2019-07-28] MEDS: polyethylene glycol 3350 17gm powd pack PO SCH (20:33)
[2019-07-28] MEDS: QUEtiapine 25mg tablet PO SCH (20:33)
--- NOTE | 2019-07-29 00:45 | NUR ---
NURSING PROGRESS REPORT Legal hold: 5250 Client on involuntary status for DTS Report received from SD Hernandez Why are they here: Patient placed on 5150 hold for DTS after stating that she is suicidal with a plan to drive her car off [place]. Patient drove herself to the ER reporting that she had been anxious for 3 days, quit taking her medications, and is suicidal with a plan. What Happened this shift: Patient in her room relaxing at change of shift. She requests Ativan for anxiety and her lozenge at this time. She reports being anxious because her family is visiting. Ativan and lozenge administered to patient. Patient spends visiting hours with her Mother, best friend and her brother who she states she hasn't seen in a while. After visiting hours patient is very pleasant and her mood is elevated. She reports having a good visit with her family and friend. She denies any SI/HI, AH/VH this shift and states she is still experiencing depression, but she feels like that is something that never fully resolves for her. She is complaint with HS medications and goes to bed after medication administration. S/I, H/I: Denies A/VH: Denies Sleep: See Sleep Assessment, currently sleeping ADL's: Independent Group attendance: N/A Were meds taken: Yes Any med S/E: None reported or observed Mental Status Exam Appearance: Unkempt, hair in mess pony on top of head Eye contact: Direct Behavior: Resting in room, interacts with others appropriately Speech: Clear, audible Mood: Anxious, depressed Affect: Constricted Thought process: Linear Thought Content: Managing anxiety Cognition: A&Ox4 Insight: Fair to good Judgment: Fair Interventions PRN's used: Ativan, Nicotine Lozenge Therapeutic interventions: 1:1 assessment, encouragement to express thoughts and feelings, encouragement to attend groups, medication administration/education/monitoring, Q 15 min safety checks. Restraints/seclusion/emergency medication: N/A Justification of Continued Inpatient Treatment: Pt continues to present with depression and anxiety with recent medication changes. Continued therapeutic support and medication management needed to provide stabilization, prevent decompensation, improve coping mechanisms decreasing risk to patient and re-admittance.
[2019-07-29] MEDS: levoTHYROXINE 25mcg tablet PO SCH (07:40)
[2019-07-29 07:50] VITALS: BP 116/95
[2019-07-29] MEDS: LORazepam 1 MG tablet PO PRN ×2 (10:21→19:20)
[2019-07-29] MEDS ORDERED: PARoxetine 20mg tablet PO SCH ×3 (12:00)
[2019-07-29] MEDS: acetaminophen 325mg tablet PO PRN (12:06)
[2019-07-29] MEDS: cloNIDine 0.1 mg tablet PO PRN (15:41)
--- NOTE | 2019-07-29 18:01 | NUR ---
NURSING PROGRESS NOTE Legal hold: 5250 Client on involuntary status for DTS Report received from SD Suggs with use of SBAR Why are they here: Patient placed on 5150 hold for DTS after stating that she is suicidal with a plan to drive her car [place]. Patient drove herself to the ER reporting that she had been anxious for 3 days, quit taking her medications, and is suicidal with a plan. What Happened this shift: Pt received awake in bed. Pt up for breakfast and groups, then would return to her bed. Pt denies depression and denies suicidal thoughts, but endorses high anxiety and received ativan today upon request. Pt focused on getting paperwork filled out for her general assistance. S/I, H/I: Denies A/VH: Denies Sleep: Sleeps most of the day unless up for PRN's or to see doctors. ADL's: Independent Group attendance: yes Were meds taken: Yes Any med S/E: Pt reports fatigue from HS Seroquel dosage decreased Mental Status Exam Appearance: Unkempt Eye contact: Direct Behavior: Isolates, sleeps attended one group today Speech: Clear, audible Mood: Anxious, depressed Affect: Constricted Thought process: Linear Thought Content: planning to live in an RV Cognition: A&Ox4 Insight: Good Judgment: Fair Interventions PRN's used: Ativan x1, Ultram x2, Nicotine lozenges x1 Therapeutic interventions: 1:1 assessment, therapeutic communication, w/active listening, encouragement to attend groups, medication administration/education/monitoring, Q 15 min safety checks. Restraints/seclusion/emergency medication: N/A Justification of Continued Inpatient Treatment: Pt continues to present with depression and anxiety with recent medication changes. Continued therapeutic support and medication management needed to provide stabilization, prevent decompensation, improve coping mechanisms decreasing risk to patient and re-admittance.
--- NOTE | 2019-07-29 18:27 | NUR ---
[facility] & [facility] REFERRAL: SW completed [facility] referral and [facility] referral for pt. Placed [facility] referral under physician's orders in chart. Placed [facility] referral under legal section of chart. Faxed documentation to destinations. Requested PPD from nurse. Anaid Potter, [employer] [id number] Supervised by Felipe Cordova, [id number]
[2019-07-29] MEDS: NICOTINE POLACRILEX 2 MG LOZENGE MM PRN (19:20)
[2019-07-29] MEDS ORDERED: tuberculin, purif. prot. deriv. 5 units/0.1ml ID ONE (19:25)
[2019-07-29 19:59] VITALS: BP 102/66
[2019-07-29] MEDS: QUEtiapine 25mg tablet PO SCH (20:39)
[2019-07-29] MEDS: polyethylene glycol 3350 17gm powd pack PO SCH (20:39)
--- NOTE | 2019-07-30 04:03 | NUR ---
NURSING PROGRESS REPORT Legal hold: 5250 Client on involuntary status for DTS Report received from SD Tomlinson Why are they here: Patient placed on 5150 hold for DTS after stating that she is suicidal with a plan to drive her car [place]. Patient drove herself to the ER reporting that she had been anxious for 3 days, quit taking her medications, and is suicidal with a plan. What Happened this shift: Patient is visible on the unit at change of shift. She interacts with others appropriately on the unit. During assessment patient still reports having anxiety that seems to persist for her. She request Ativan to help with this anxiety. She denies SI/HI, AH/VH this evening. After HS snacks patient is noted to keep to her room. She is cooperative for HS medications and her PPD is place per protocol for placement purposes. S/I, H/I: Denies A/VH: Denies Sleep: See Sleep Assessment, currently sleeping ADL's: Independent Group attendance: N/A Were meds taken: Yes Any med S/E: None reported or observed Mental Status Exam Appearance: Unkempt, hair in mess pony on top of head Eye contact: Direct Behavior: Resting in room, interacts with others appropriately Speech: Clear, audible Mood: Anxious, depressed Affect: Constricted Thought process: Linear Thought Content: Managing anxiety Cognition: A&Ox4 Insight: Fair to good Judgment: Fair Interventions PRN's used: Ativan, Nicotine Lozenge Therapeutic interventions: 1:1 assessment, encouragement to express thoughts and feelings, encouragement to attend groups, medication administration/education/monitoring, Q 15 min safety checks. Restraints/seclusion/emergency medication: N/A Justification of Continued Inpatient Treatment: Pt continues to present with depression and anxiety with recent medication changes. Continued therapeutic support and medication management needed to provide stabilization, prevent decompensation, improve coping mechanisms decreasing risk to patient and re-admittance.
[2019-07-30 08:00] VITALS: BP 109/68
[2019-07-30] MEDS: atorvastatin 20mg tablet PO SCH (08:12)
[2019-07-30] MEDS: levoTHYROXINE 100mcg tablet PO SCH (08:12)
[2019-07-30] MEDS: LORazepam 1 MG tablet PO PRN ×2 (08:40→20:44)
[2019-07-30] MEDS: acetaminophen 325mg tablet PO PRN (08:40)
[2019-07-30] MEDS: NICOTINE POLACRILEX 2 MG LOZENGE MM PRN ×2 (12:00→15:34)
[2019-07-30 13:21] VITALS: BP 124/93
[2019-07-30] MEDS: cloNIDine 0.1 mg tablet PO PRN (13:21)
--- NOTE | 2019-07-30 15:25 | NUR ---
NURSING PROGRESS NOTE Legal hold: 5250 Client on involuntary status for DTS Report received from Nelia Garcia RN with use of SBAR Why are they here: Patient placed on 5150 hold for DTS after stating that she is suicidal with a plan to drive her car off a [place] and [place] the [place]. Patient drove herself to the ER reporting that she had been anxious for 3 days, quit taking her medications, and is suicidal with a plan. What Happened this shift: Pt reported not sleeping well last night, she stated that her depression was "the same," denied SI, reported that her anxiety is "up there." Requested prn Ativan 1 mg @ 0840 as well as Tylenol 650 mg for 4/10 back pain with good effect. Pt observed anxious and tearful at 1321, requested prn Clonidine 0.1 mg. Asked pt why she was so upset. She stated that she had lost her money due to not being able to follow up because she was in here. Asked pt to clarify, she stated that she had applied for G.A. (general assistance) but because she was in here, she was unable to get her paperwork in and so had lost $400 dollars and now will have to apply all over again. Pt stated that, "I know that's not much for most people, but I'm homeless and my car has a flat tire, I don't even know what I'm going to do when I get out of here." Pt indicated that she believed the doctors were getting the form to her but it had not been done in time. Spoke with NICO Worrell and Dr Raza who was present here on the unit. Dr Raza had the GA form faxed over from his office, form provided to the patient who filled her part out and will give it to Dr Sutherland to complete this afternoon. Pt requested prn Nicotine lozenges X 2 today. Pt states that she has been accepted at the [facility] and expects to discharge sometime next week. S/I, H/I: Pt denies A/VH: Pt denies Sleep: Pt reported not sleeping well last night, napped periodically throughout the day. ADL's: Independent Group attendance: Did not attend morning group Were meds taken: Yes Any med S/E: None noted or reported Mental Status Exam Appearance: Unkempt, old, smeared eye makeup Eye contact: Good Behavior: Pleasant, cooperative, mostly isolative to self Speech: Clear, audible Mood: Anxious, depressed Affect: anxious, depressed, mildly to moderately distressed Thought process: Linear Thought Content: Pt upset over believing she will not receive her general assistance, pt happy that she has been accepted at the [facility] after being denied previously. Cognition: A&O X 4 Insight: Good Judgment: Fair Interventions PRN's used: Ativan 1 mg @ 0840, Tylenol 650 mg @ 0840, clonidine 0.1 mg @ 1321, nicotine lozenge X 2. Therapeutic interventions: 1:1 assessment, active listening, therapeutic conversation, problem solving, positive reinforcement, encouragement to attend groups, medication administration/education/monitoring, Q 15 min safety checks. Restraints/seclusion/emergency medication: N/A Justification of Continued Inpatient Treatment: Pt continues to present with depression and anxiety with recent medication changes. Continued therapeutic support and medication management needed to provide stabilization, prevent decompensation, improve coping mechanisms decreasing risk to patient and re-admittance. She has been accepted at [facility], plan is to discharge next week.
[2019-07-30] MEDS ORDERED: PARoxetine 20mg tablet PO SCH (17:00)
[2019-07-30 19:00] VITALS: BP 137/68
[2019-07-30] MEDS: QUEtiapine 25mg tablet PO SCH (20:36)
[2019-07-30] MEDS: polyethylene glycol 3350 17gm powd pack PO SCH (20:36)
--- NOTE | 2019-07-31 01:12 | NUR ---
NURSING PROGRESS NOTE Legal hold: 5250 Client on involuntary status for DTS Report received from SD Tomlinson with use of SBAR Why are they here: Patient placed on 5150 hold for DTS after stating that she is suicidal with a plan to drive her car off a [place] and [place] the [place]. Patient drove herself to the ER reporting that she had been anxious for 3 days, quit taking her medications, and is suicidal with a plan. What Happened this shift: Patient laying in bed with her head covered by her blankets. She does pull them back and greet this tag writer when I enter the room. She presents as depressed, and is isolative to her room this evening which is unusual for her. She reports feeling "depressed and anxious", but denies SI this evening. She is complaint with her HS medications. S/I, H/I: Pt denies A/VH: Pt denies Sleep: See sleep assessment, currently sleeping ADL's: Independent Group attendance: No groups this shift Were meds taken: Yes Any med S/E: None noted or reported Mental Status Exam Appearance: Unkempt, smeared eye makeup Eye contact: Good Behavior: Pleasant, cooperative, mostly isolative to self Speech: Clear, audible Mood: Anxious, depressed Affect: Depressed Thought process: Linear Thought Content: Pt upset over general assistance Cognition: A&O X 4 Insight: Good Judgment: Fair Interventions PRN's used: Ativan Therapeutic interventions: 1:1 assessment, active listening, therapeutic conversation, problem solving, positive reinforcement, encouragement to attend groups, medication administration/education/monitoring, Q 15 min safety checks. Restraints/seclusion/emergency medication: N/A Justification of Continued Inpatient Treatment: Pt continues to present with depression and anxiety with recent medication changes. Continued therapeutic support and medication management needed to provide stabilization, prevent decompensation, improve coping mechanisms decreasing risk to patient and re-admittance. She has been accepted at [facility], plan is to discharge next week.
[2019-07-31] MEDS: atorvastatin 20mg tablet PO SCH (07:25)
[2019-07-31] MEDS: levoTHYROXINE 100mcg tablet PO SCH (07:25)
[2019-07-31 07:30] VITALS: BP 105/71
[2019-07-31] MEDS: acetaminophen 325mg tablet PO PRN ×2 (09:26→21:21)
[2019-07-31] MEDS: LORazepam 1 MG tablet PO PRN ×2 (11:00→19:31)
[2019-07-31] MEDS: NICOTINE POLACRILEX 2 MG LOZENGE MM PRN ×2 (12:32→16:27)
--- NOTE | 2019-07-31 17:45 | NUR ---
NURSING PROGRESS NOTE Legal hold: 5250 Client on involuntary status for DTS Report received from SD Tomlinson with use of SBAR Why are they here: Patient placed on 5150 hold for DTS after stating that she is suicidal with a plan to drive her car off a [place] and [place] the [place]. Patient drove herself to the ER reporting that she had been anxious for 3 days, quit taking her medications, and is suicidal with a plan. What Happened this shift: Pt. asleep at start of shift. Pt. woken up for medications, pt. took all medications and ate all meals in community room. 1:1 done at bedside, pt. reports anxiety 03/03. Pt. denies SI/HI, A/V H. Pt. received phone call from her son which made her "very happy". Pt. seen smiling, interacting appropriately with staff and patients. S/I, H/I: Pt denies A/VH: Pt denies Sleep: See sleep assessment, currently sleeping ADL's: Independent Group attendance: No groups this shift Were meds taken: Yes Any med S/E: None noted or reported Mental Status Exam Appearance: Unkempt, smeared eye makeup Eye contact: Good Behavior: Pleasant, cooperative, mostly isolative to self Speech: Clear, audible Mood: Anxious, depressed Affect: Depressed Thought process: Linear Thought Content: Pt upset over general assistance Cognition: A&O X 4 Insight: Good Judgment: Fair Interventions PRN's used: Ativan Therapeutic interventions: 1:1 assessment, active listening, therapeutic conversation, problem solving, positive reinforcement, encouragement to attend groups, medication administration/education/monitoring, Q 15 min safety checks. Restraints/seclusion/emergency medication: N/A Justification of Continued Inpatient Treatment: Pt continues to present with depression and anxiety with recent medication changes. Continued therapeutic support and medication management needed to provide stabilization, prevent decompensation, improve coping mechanisms decreasing risk to patient and re-admittance. She has been accepted at [facility], plan is to discharge next week.
[2019-07-31 19:40] VITALS: BP 124/89
[2019-07-31] MEDS ORDERED: PARoxetine 20mg tablet PO SCH (20:00)
[2019-07-31] MEDS: polyethylene glycol 3350 17gm powd pack PO SCH (21:19)
[2019-07-31] MEDS: QUEtiapine 25mg tablet PO SCH (21:21)
[2019-07-31] MEDS: PARoxetine 20mg tablet PO SCH (21:23)
--- NOTE | 2019-08-01 04:57 | NUR ---
NURSING PROGRESS NOTE Legal hold: 5250 Client on involuntary status for DTS Report received from KVNG Tomlinson with use of SBAR Why are they here: Patient placed on 5150 hold for DTS after stating that she is suicidal with a plan to drive her car off a [place] and [place] the [place]. Patient drove herself to the ER reporting that she had been anxious for 3 days, quit taking her medications, and is suicidal with a plan. What Happened this shift: Patient laying in bed awake at the beginning of shift. Shortly after receiving patient she c/o anxiety/agitation. PRN Ativan provided. Patient remained her bedroom most of the shift, only leaving to approach this casualty underwriter. Patient denied SI, HI, A/VH and endorses depression. Patient explained she got to this unit because she was trying to escape the heat. She continued to explain that she first tried to get [place] and then presented to the hospital for medical, then went over to mental health to be admitted. Patient pleasant and cooperative with assessment and medications. She identifies each pill herself before taking them. Patient c/o menstrual cramping and PRN Tylenol provided and effective. S/I, H/I: Pt denies A/VH: Pt denies Sleep: asleep at this time ADL's: Independent Group attendance: No groups this shift Were meds taken: Yes Any med S/E: None noted or reported Mental Status Exam Appearance: disheveled Eye contact: Good Behavior: Pleasant, cooperative, mostly isolative to self Speech: Clear, audible, steady pace Mood: Anxious, depressed Affect: congruent to mood Thought process: Linear with delusional content Thought Content: situational Cognition: A&O X 3 (understanding where she is but not why) Insight: Good Judgment: Fair Interventions PRN's used: Ativan, Tylenol Therapeutic interventions: 1:1 assessment, active listening, therapeutic conversation, problem solving, positive reinforcement, encouragement to attend groups, medication administration/education/monitoring, Q 15 min safety checks. Restraints/seclusion/emergency medication: N/A Justification of Continued Inpatient Treatment: Pt continues to present with depression and anxiety with recent medication changes. Continued therapeutic support and medication management needed to provide stabilization, prevent decompensation, improve coping mechanisms decreasing risk to patient and re-admittance. She has been accepted at [facility], plan is to discharge next week.
[2019-08-01] MEDS: LORazepam 1 MG tablet PO PRN (07:37)
[2019-08-01] MEDS: levoTHYROXINE 100mcg tablet PO SCH (07:37)
[2019-08-01] MEDS: atorvastatin 20mg tablet PO SCH (07:37)
[2019-08-01 08:00] VITALS: BP 111/70
[2019-08-01] MEDS: acetaminophen 325mg tablet PO PRN (10:51)
[2019-08-01] MEDS: NICOTINE POLACRILEX 2 MG LOZENGE MM PRN (10:51)
--- NOTE | 2019-08-01 13:10 | NUR ---
NURSING PROGRESS NOTE Legal hold: 5250 expiring 08/07/19 Client on involuntary status for DTS Report received from SD Martinez with use of SBAR Why are they here: Patient placed on 5150 hold for DTS after stating that she is suicidal with a plan to drive her car off a [place] and [place] the [place]. Patient drove herself to the ER reporting that she had been anxious for 3 days, quit taking her medications, and is suicidal with a plan. What Happened this shift: Patient was asleep at the beginning of the shift, but was easily aroused and took all medications as prescribed. She was visible on the unit socializing with staff and patients. She complains of pain and states that she thinks her period is starting. She asked for PRN Ativan and Tylenol. She states she has very bad anxiety. S/I, H/I: passive A/VH: Pt denies Sleep: See sleep assessment,some napping ADL's: Independent Group attendance: Yes Were meds taken: Yes, compliant Any med S/E: None noted or reported Mental Status Exam Appearance: showered and in clean clothes Eye contact: Good Behavior: Pleasant, cooperative, mostly isolative Speech: Clear, audible Mood: Anxious, depressed Affect: Depressed Thought process: Linear Thought Content: Pt upset over general assistance Cognition: A&O X 4 Insight: Poor Judgment: Fair Interventions PRN's used: Ativan, Tylenol Therapeutic interventions: 1:1 assessment, active listening, therapeutic conversation, problem solving, positive reinforcement, encouragement to attend groups, medication administration/education/monitoring, Q 15 min safety checks. Restraints/seclusion/emergency medication: N/A Justification of Continued Inpatient Treatment: Pt continues to present with depression and anxiety with recent medication changes. Continued therapeutic support and medication management needed to provide stabilization, prevent decompensation, improve coping mechanisms decreasing risk to patient and re-admittance. She has been accepted at [facility], plan is to discharge next week.
[2019-08-01] MEDS ORDERED: naproxen sodium 220mg tablet PO ONE (13:25)
[2019-08-01] MEDS: cloNIDine 0.1 mg tablet PO PRN (17:18)
[2019-08-01 19:37] VITALS: BP 106/76
[2019-08-01] MEDS: polyethylene glycol 3350 17gm powd pack PO SCH (20:58)
[2019-08-01] MEDS: QUEtiapine 25mg tablet PO SCH (20:59)
[2019-08-01] MEDS: PARoxetine 20mg tablet PO SCH (21:00)
--- NOTE | 2019-08-02 00:42 | NUR ---
NURSING PROGRESS REPORT Legal hold: 5250 Client on involuntary status for DTS Report received from SD Tomlinson Why are they here: Patient placed on 5150 hold for DTS after stating that she is suicidal with a plan to drive her car off a [place] and [place] the [place]. Patient drove herself to the ER reporting that she had been anxious for 3 days, quit taking her medications, and is suicidal with a plan. What Happened this shift: Pt walking around unit during change of shift. She is excited that her son is visiting this evening. During 1:1, pt states that she had a good visit with her son and it made her feel better. Pt states anxiety still gets the best of her during the morning, but she is feeling more confident in management with recent medication changes and looks forward to discharging. Pt is feeling a little more fatigued due to PMS "I just want to start my period!". Pt laughs appropriately and brightens throughout conversation. Pt is medication compliant and retired to bed shortly after administration; pt declined anxiety medication stating she thinks she'll be okay once she falls asleep. S/I, H/I: Denies A/VH: Denies Sleep: See Sleep Assessment ADL's: Independent Group attendance: N/A Were meds taken: Yes Any med S/E: None reported, None Observed Mental Status Exam Appearance: Hair pulled back in a bun, green scrubs, Nonskid socks, clean and neat Eye contact: Direct Behavior: Resting in room, Attending snack, Visiting with son during visitor hours Speech: Clear, regular rate and rhythm Mood: Depressed 3/10, Anxious 7/10 Affect: Bright Thought process: Linear Thought Content: Feeling more confident about using coping mechanisms to manage anxiety, excited to discharge Cognition: A&Ox4 Insight: Fair to good Judgment: Fair to good Interventions PRN's used: None Therapeutic interventions: 1:1 assessment, encouragement to express thoughts and feelings, encouragement to attend groups, medication administration/education/monitoring, Q 15 min safety checks. Restraints/seclusion/emergency medication: N/A Justification of Continued Inpatient Treatment: Pt continues to present with depression and anxiety with recent medication changes. Continued therapeutic support and medication management needed to provide stabilization, prevent decompensation, improve coping mechanisms decreasing risk to patient and re-admittance.
[2019-08-02] MEDS: levoTHYROXINE 100mcg tablet PO SCH (07:36)
[2019-08-02] MEDS: atorvastatin 20mg tablet PO SCH (07:36)
[2019-08-02 08:11] VITALS: BP 91/66
[2019-08-02] MEDS: LORazepam 1 MG tablet PO PRN ×2 (09:35→20:55)
[2019-08-02] MEDS: naproxen sodium 220mg tablet PO PRN ×2 (09:35→20:55)
--- NOTE | 2019-08-02 10:38 | NUR ---
Eating well, average PO intake 75-100% of regular meals and is meeting needs. Taking miralax HS for constipation. Wt stable. Will continue to follow. Recommend: 1. continue regular diet 2. continue bowel care 3. weekly wts Addendum: 08/02/19 at [address] Amended: Links added.
[2019-08-02] MEDS: cloNIDine 0.1 mg tablet PO PRN (16:35)
--- NOTE | 2019-08-02 17:44 | NUR ---
NURSING PROGRESS NOTE: Legal Hold: VOL Report received from KVNG Nowak with use of SBAR Why they are here: Pt lives with Mother and teenage son in [place]. Pt has been on disability since 2006 due to c spine cysts and chronic pain, she reports this is when her depression started and also reports that the auditory hallucinations started in [address]. Dr. Paula currently manages her psych meds. Pt has had previous psych admit but states it has been years. Denies any previous suicide attempts and she states she does not currently feel suicidal. What happened this shift: Pt received awake in bed. Pt stated pain woke her up this morning early. Pt affect remains flat. Pt stated the voices "Dagoberto" were bad again yesterday, but that they had actually gotten better for the first time since they began about ten years ago. Pt went for MRI and stated "it is nice to get outside, even just for a minute". Pt cooperative with procedure. Pt does appear apathetic, but pt did attend groups. Pt also met with Dee activity therapist. Pt brightened this afternoon thinking about probable discharge tomorrow. S/I H/I: Denies A/V H: Command voices ADLS: Independent Group attendance: yes Were meds taken:Yes Any S/e noted: None reported nor observed Mental status exam: Appearance: Clean, wearing street clothes, hair brushed and wearing makeup Eye contact: Direct Behavior: quiet, respectful, isolating Speech: Normal rate, soft tone Mood: Anxious, depressed Affect: Flat with occasional brightening Thought process: Linear Thought content: Medication changes, wants to go home. Cognition: A&Ox4 Insight: Fair to good Judgment: good Interventions: PRN use: Ultram Therapeutic Interventions: Continued therapeutic support and medication management needed to provide stabilization. 1:1 assessment with patient, provide active listening and therapeutic milieu. Restraints/seclusion/emergency medication: N/A Justification of Continued Inpatient Treatment: Currently she is reporting depression and anxiety r/t command hallucinations. Continued therapeutic support and medication management needed to provide stabilization, prevent decompensation, improve coping mechanisms decreasing risk to patient and re-admittance.
[2019-08-02] MEDS: NICOTINE POLACRILEX 2 MG LOZENGE MM PRN (19:15)
[2019-08-02 20:00] VITALS: BP 120/85
[2019-08-02] MEDS: polyethylene glycol 3350 17gm powd pack PO SCH (20:52)
[2019-08-02] MEDS: PARoxetine 20mg tablet PO SCH (20:52)
[2019-08-02] MEDS: QUEtiapine 25mg tablet PO SCH (20:52)
--- NOTE | 2019-08-02 22:53 | NUR ---
NURSING PROGRESS REPORT Legal hold: 5250 Client on involuntary status for DTS Report received from SD Tomlinson Why are they here: Patient placed on 5150 hold for DTS after stating that she is suicidal with a plan to drive her car off a [place] and [place]. Patient drove herself to the ER reporting that she had been anxious for 3 days, quit taking her medications, and is suicidal with a plan. What Happened this shift: Pt walking around unit during change of shift. During 1:1, pt states that she feels better and is excited to discharge. She is feeling anxious about discharge and "all the things I have on my to do list" but she feels more confident in managing her anxiety and thinks her current medication regimen is helpful. Pt laughs appropriately and brightens throughout conversation. Pt is medication compliant and retired to bed shortly after administration. S/I, H/I: Denies A/VH: Denies Sleep: See Sleep Assessment ADL's: Independent Group attendance: N/A Were meds taken: Yes Any med S/E: None reported, None Observed Mental Status Exam Appearance: Hair pulled back in a bun, green scrubs, Nonskid socks, clean and neat Eye contact: Direct Behavior: Resting in room, Attending snack, Engaging with staff and peers in TV room Speech: Clear, regular rate and rhythm Mood: "Feeling good", Anxious 5/10 Affect: Bright, Animated Thought process: Linear Thought Content: excited to discharge, planning for what she is going to do once discharged Cognition: A&Ox4 Insight: Good Judgment: Good Interventions PRN's used: Aleve, Ativan, Nicotine Lozenge Therapeutic interventions: 1:1 assessment, encouragement to express thoughts and feelings, encouragement to attend groups, medication administration/education/monitoring, Q 15 min safety checks. Restraints/seclusion/emergency medication: N/A Justification of Continued Inpatient Treatment: Continued therapeutic support and medication management needed to provide stabilization, prevent decompensation, improve coping mechanisms decreasing risk to patient and re-admittance.
[2019-08-03] MEDS: naproxen sodium 220mg tablet PO PRN (07:32)
[2019-08-03] MEDS: atorvastatin 20mg tablet PO SCH (07:33)
[2019-08-03] MEDS: levoTHYROXINE 100mcg tablet PO SCH (07:33)
[2019-08-03 07:53] VITALS: BP 105/75
[2019-08-03] MEDS: LORazepam 1 MG tablet PO PRN (10:25)
[2019-08-03] MEDS: NICOTINE POLACRILEX 2 MG LOZENGE MM PRN (11:09)
[2019-08-03] MEDS ORDERED: LEVO100T9 PO (11:10)
[2019-08-03] MEDS ORDERED: NICO-668 MM (11:10)
[2019-08-03] MEDS ORDERED: QUET25TA34 PO (11:10)
[2019-08-03] MEDS ORDERED: ATOR20TA66 PO (11:10)
[2019-08-03] MEDS ORDERED: CLON0.1T20 PO (11:10)
[2019-08-03] MEDS ORDERED: PARO20TA6 PO (11:10)
--- NOTE | 2019-08-03 12:23 | NUR ---
Discharge Note: Pt dc'd to self at 1213. Pt escorted to front of the hospital by staff. Pt had her car here and will be driving to scrap picker medications and then driving herself to the [facility]. Discharge instructions including medications and followup appts explained to the patient and she verbalized understanding and signed agreement. All belongings returned to the patient including any valuables. Smoking cessation education provided to the patient. Pt did state that she had no plans on quitting and couldn't wait to get a cigarette. Pt smiling all morning and was looking forward to discharge. Pt denies S.I.
== END 2019-08-03 12:13 | disposition short-term general hospital (02) | DRG 751 ==
LOC: ADULT MH 11:16
PROVIDERS: ADMIT Psychiatry & Neurology Psychiatry; ATTEND Psychiatry & Neurology Psychiatry
DX: F33.2 Major depressive disorder, recurrent severe without psychotic features (principal); R45.851 Suicidal ideations; F15.20 Other stimulant dependence, uncomplicated; E03.9 Hypothyroidism, unspecified; F12.90 Cannabis use, unspecified, uncomplicated; F17.210 Nicotine dependence, cigarettes, uncomplicated; E78.00 Pure hypercholesterolemia, unspecified; F41.0 Panic disorder [episodic paroxysmal anxiety]; K59.00 Constipation, unspecified; Z59.0 Homelessness; Z79.890 Hormone replacement therapy; Z90.49 Acquired absence of other specified parts of digestive tract; Z88.5 Allergy status to narcotic agent
CPT/HCPCS: 36415; 80061; 83036; 87081; 99285

== ENCOUNTER 2019-08-16 17:50 | Emergency (ER) | payer MEDICAID ==
[~2019-08-16] VITALS: Ht 160 cm; Wt 111.0 kg
[~2019-08-16 17:50] MED LIST changes: +ATOR20TA66 PO; -CLON-528 PO; +CLON0.1T20 PO; +LEVO100T PO; +LEVO100T9 PO; -LEVO300T6 PO; +NICO-668 MM; -PARO-62 PO; +PARO20TA6 PO; +QUET25TA34 PO; -ZOLP10TA PO
[2019-08-16] MEDS ORDERED: ondansetron 4mg rapidly disintigrating tab PO ONE (18:20)
[2019-08-16 18:42] LABS: BASOPHILS # (AUTO) 0.1 X10'3 (0-0.2); BASOPHILS % (AUTO) 1.3 % (0-1); EOSINOPHILS # (AUTO) 0.4 X10'3 (0-0.9); EOSINOPHILS % (AUTO) 3.6 % (0-6); HEMATOCRIT 33.3 % (35.0-45.0); HEMOGLOBIN 11.1 g/dl (12.0-16.0); LYMPHOCYTES # (AUTO) 2.1 X10'3 (1.1-4.8); LYMPHOCYTES % (AUTO) 21.1 % (21-51); MEAN CORPUSCULAR HEMOGLOBIN 28.2 PG (27.0-31.0); MEAN CORPUSCULAR HGB CONC 33.5 g/dL (33.0-36.5); MEAN CORPUSCULAR VOLUME 84.4 FL (78-98); MEAN PLATELET VOLUME 7.4 FL (7.4-10.4); MONOCYTES # (AUTO) 0.7 X10'3 (0-0.9); MONOCYTES % (AUTO) 6.6 % (2-12); NEUTROPHILS # (AUTO) 6.7 X10'3 (1.8-7.7); NEUTROPHILS % (AUTO) 67.4 % (42-75); PLATELET COUNT 347 X10'3 (140-440); RED BLOOD COUNT 3.95 X10'6 (4.20-5.60); RED CELL DISTRIBUTION WIDTH 16.4 % (11.5-14.5); WHITE BLOOD COUNT 9.9 X10'3 (4.5-11.0)
[2019-08-16 18:45] VITALS: BP 114/80
--- NOTE | 2019-08-16 18:47 | NUR ---
ASSUMED CARE OF PT WHO WAS RESTING IN BED AWAITING MD . POC OF CARE UPDATED VS STABLE. URINE SPEICAMAN SENT TO LAB . PT RATES DISCOMFORT 05/03. WARMED BLANKET OFFERED. PT REQUESTING MEDICINE FOR ANXIETY. STATES SHE "LAST TOOK HER PRN AXIETY AT 10 AM TODAY "
[2019-08-16 18:54] LABS: ALANINE AMINOTRANSFERASE 45 U/L (12-78); ALBUMIN 3.2 G/DL (3.4-5.0); ALBUMIN/GLOBULIN RATIO 1.1 (1.1-1.5); ALKALINE PHOSPHATASE 90 IU/L (46-116); ANION GAP 8 (8-16); ASPARTATE AMINO TRANSFERASE 28 U/L (10-37); BILIRUBIN,TOTAL 0.2 MG/DL (0.1-1.0); BLOOD UREA NITROGEN 12 MG/DL (7-18); CALCIUM 7.6 MG/DL (8.5-10.1); CHLORIDE 109 MMOL/L (99-107); CREATININE 0.75 MG/DL (0.40-0.90); GLUCOSE 89 MG/DL (70-104); POTASSIUM 4.3 MMOL/L (3.5-5.1); SODIUM 143 MMOL/L (135-145); TOTAL CARBON DIOXIDE 26.5 MMOL/L (24-32); TOTAL PROTEIN 6.2 G/DL (6.4-8.2); eGFR 83 ML/MIN
== END 2019-08-16 19:06 | disposition home or self-care (01) ==
LOC: ER 17:50
DX: R07.89 Other chest pain (principal); R11.0 Nausea; K21.9 Gastro-esophageal reflux disease without esophagitis; E03.9 Hypothyroidism, unspecified; F41.9 Anxiety disorder, unspecified; F31.9 Bipolar disorder, unspecified; F17.200 Nicotine dependence, unspecified, uncomplicated; F15.90 Other stimulant use, unspecified, uncomplicated; Z88.6 Allergy status to analgesic agent; Z79.899 Other long term (current) drug therapy
CPT/HCPCS: 36415; 80053; 85025; 93005; 99284

== ENCOUNTER 2019-10-08 15:42 | Emergency (ER) | payer MEDICAID ==
[~2019-10-08] VITALS: Ht 162.6 cm; Wt 122.7 kg
[~2019-10-08 15:42] MED LIST changes: +CLON0.1T2 PO; -CLON0.1T20 PO
--- NOTE | 2019-10-08 17:38 | NUR ---
PATIENT STATES THAT SHE "HAD A SEIZURE THAT LASTED 30 MINUTES AND I PEED MYSELF" THEN SHE CHANGED HER CLOTHES WITNESSED BY HER FRIENDS AT HER TRANSITIONAL , SOBER LIVING HOUSE:. PATIENT REFUSES TO DISCLOSE THE LENGTH OF HER SOBRIETY FROM [facility] PATIENT STATES THAT SHE WAS HERE [facility], THEN THE [facility], AND NOW IN TRANSITIONAL HOUSING
[2019-10-08] MEDS ORDERED: normal saline 1000ML IV soln IVB ONE (17:50)
[2019-10-08] MEDS ORDERED: ketorolac tromethamine 15mg/ml inj. IV ONE (17:50)
--- NOTE | 2019-10-08 18:04 | NUR ---
TO CT SCAN
[2019-10-08 18:17] LABS: CLARITY,URINE CLEAR (Clear); COLOR,URINE YELLOW (Yellow); GLUCOSE, URINE NEGATIVE (Neg); KETONES,URINE NEGATIVE (Neg); LEUKOCYTE ESTERASE ,URINE NEGATIVE (Neg); NITRITES, URINE NEGATIVE (Neg); OCCULT BLOOD,URINE NEGATIVE (Neg); PROTEIN,URINE NEGATIVE (Neg); UROBILINOGEN,URINE 0.2 E.U/dL (0.2-1.0)
[2019-10-08 18:19] LABS: UA COLLECTION TYPE CLN CATCH MIDSTREAM
[2019-10-08 18:23] LABS: URINE AMPHETAMINE SCREEN NEGATIVE (Neg); URINE BARBITUATE SCREEN NEGATIVE (Neg); URINE BENZODIAZEPINES SCREEN NEGATIVE (Neg); URINE CANNABINOID SCREEN POSITIVE (Neg); URINE COCAINE SCREEN NEGATIVE (Neg); URINE METHADONE SCREEN NEGATIVE (Neg); URINE OPIATE SCREEN NEGATIVE (Neg); URINE PHENCYCLIDINE SCREEN NEGATIVE (Neg)
[2019-10-08 18:37] LABS: BASOPHILS # (AUTO) 0.2 X10'3 (0-0.2); BASOPHILS % (AUTO) 1.1 % (0-1); EOSINOPHILS # (AUTO) 0.6 X10'3 (0-0.9); EOSINOPHILS % (AUTO) 4.6 % (0-6); HEMATOCRIT 33.5 % (35.0-45.0); HEMOGLOBIN 11.1 g/dl (12.0-16.0); LYMPHOCYTES # (AUTO) 2.6 X10'3 (1.1-4.8); LYMPHOCYTES % (AUTO) 18.6 % (21-51); MEAN CORPUSCULAR HEMOGLOBIN 26.2 PG (27.0-31.0); MEAN CORPUSCULAR HGB CONC 33.2 g/dL (33.0-36.5); MEAN CORPUSCULAR VOLUME 78.8 FL (78-98); MEAN PLATELET VOLUME 7.2 FL (7.4-10.4); MONOCYTES # (AUTO) 0.7 X10'3 (0-0.9); MONOCYTES % (AUTO) 4.9 % (2-12); NEUTROPHILS # (AUTO) 9.8 X10'3 (1.8-7.7); NEUTROPHILS % (AUTO) 70.8 % (42-75); PLATELET COUNT 404 X10'3 (140-440); RED BLOOD COUNT 4.25 X10'6 (4.20-5.60); RED CELL DISTRIBUTION WIDTH 16.4 % (11.5-14.5); WHITE BLOOD COUNT 13.9 X10'3 (4.5-11.0)
[2019-10-08 18:47] LABS: PARTIAL THROMBOPLASTIN TIME 25 SECONDS (22-32)
[2019-10-08 18:51] LABS: ALANINE AMINOTRANSFERASE 48 U/L (12-78); ALBUMIN 3.7 G/DL (3.4-5.0); ALBUMIN/GLOBULIN RATIO 0.9 (1.1-1.5); ALKALINE PHOSPHATASE 124 IU/L (46-116); ANION GAP 6 (8-16); ASPARTATE AMINO TRANSFERASE 36 U/L (10-37); BILIRUBIN,TOTAL 0.4 MG/DL (0.1-1.0); BLOOD UREA NITROGEN 14 MG/DL (7-18); BUN/CREATININE RATIO 18.9 (6.6-38.0); CALCIUM 9.1 MG/DL (8.5-10.1); CHLORIDE 103 MMOL/L (99-107); CREATININE 0.74 MG/DL (0.40-0.90); GLUCOSE 94 MG/DL (70-104); POTASSIUM 4.2 MMOL/L (3.5-5.1); SODIUM 139 MMOL/L (135-145); TOTAL CARBON DIOXIDE 30.4 MMOL/L (24-32); TOTAL PROTEIN 7.8 G/DL (6.4-8.2); eGFR 84 ML/MIN
[2019-10-08 18:52] LABS: TROPONIN I < 0.04 NG/ML (0.0-0.05)
[2019-10-08 18:53] LABS: ETHANOL < 0.010 GM/DL (0.0-0.010)
[2019-10-08 19:41] VITALS: BP 121/63
== END 2019-10-08 19:48 | disposition home or self-care (01) ==
LOC: ER 15:42
DX: G40.909 Epilepsy, unspecified, not intractable, without status epilepticus (principal); E66.9 Obesity, unspecified; K02.9 Dental caries, unspecified; K21.9 Gastro-esophageal reflux disease without esophagitis; E03.9 Hypothyroidism, unspecified; F12.90 Cannabis use, unspecified, uncomplicated; F15.90 Other stimulant use, unspecified, uncomplicated; Z88.6 Allergy status to analgesic agent; Z79.899 Other long term (current) drug therapy
CPT/HCPCS: 36415; 70450; 71045; 80053; 80305; 80320; 81003; 84484; 85025; 85610; 85730; 93005; 96374; 99284; J1885; J7030

== ENCOUNTER 2019-11-19 21:50 | Emergency (ER) | payer MEDICAID ==
[~2019-11-19] VITALS: Ht 162.6 cm; Wt 122.7 kg
[2019-11-19] MEDS ORDERED: LORazepam 1 MG tablet PO STA (22:14)
--- NOTE | 2019-11-19 22:14 | NUR ---
Spoke to KEATON Leger. Pt will calm with me breathing with her but then starts back up hyperventilating. She stated to adm ativan 1 mg po.
[2019-11-19] MEDS ORDERED: chlordiazePOXIDE 25mg capsule PO ONE (23:05)
[2019-11-19] MEDS ORDERED: albuterol 2.5 MG/3 ML nebule NEB ONE (23:05)
--- NOTE | 2019-11-19 23:40 | NUR ---
Pt reports all symptoms have resolved. Pt appears calm, respirations even and non labored.
[2019-11-20 00:05] VITALS: BP 121/67
== END 2019-11-19 23:56 | disposition home or self-care (01) ==
LOC: ER 21:51
DX: R05 Cough (principal); F41.9 Anxiety disorder, unspecified; K21.9 Gastro-esophageal reflux disease without esophagitis; E03.9 Hypothyroidism, unspecified; F31.9 Bipolar disorder, unspecified; F12.90 Cannabis use, unspecified, uncomplicated; F15.90 Other stimulant use, unspecified, uncomplicated; Z87.891 Personal history of nicotine dependence; Z88.6 Allergy status to analgesic agent; Z79.899 Other long term (current) drug therapy
CPT/HCPCS: 71046; 94640; 94760; 99283

== ENCOUNTER 2020-01-28 13:08 | Emergency (ER) | payer MEDICAID ==
[~2020-01-28] VITALS: Ht 162.6 cm; Wt 109.8 kg
[2020-01-28 15:26] LABS: BASOPHILS # (AUTO) 0.1 X10'3 (0-0.2); BASOPHILS % (AUTO) 1.2 % (0-1); EOSINOPHILS # (AUTO) 0.3 X10'3 (0-0.9); EOSINOPHILS % (AUTO) 2.4 % (0-6); HEMATOCRIT 37.9 % (35.0-45.0); HEMOGLOBIN 12.3 g/dl (12.0-16.0); LYMPHOCYTES # (AUTO) 2.8 X10'3 (1.1-4.8); LYMPHOCYTES % (AUTO) 23.5 % (21-51); MEAN CORPUSCULAR HEMOGLOBIN 23.6 PG (27.0-31.0); MEAN CORPUSCULAR HGB CONC 32.4 g/dL (33.0-36.5); MEAN CORPUSCULAR VOLUME 72.8 FL (78-98); MONOCYTES # (AUTO) 0.5 X10'3 (0-0.9); MONOCYTES % (AUTO) 4.6 % (2-12); NEUTROPHILS # (AUTO) 8.2 X10'3 (1.8-7.7); NEUTROPHILS % (AUTO) 68.3 % (42-75); PLATELET COUNT 333 X10'3 (140-440); RED CELL DISTRIBUTION WIDTH 18.3 % (11.5-14.5)
[2020-01-28 15:33] LABS: ALANINE AMINOTRANSFERASE 15 U/L (12-78); ALBUMIN 3.6 G/DL (3.4-5.0); ALBUMIN/GLOBULIN RATIO 0.9 (1.1-1.5); ALKALINE PHOSPHATASE 101 IU/L (46-116); ANION GAP 6 (8-16); ASPARTATE AMINO TRANSFERASE 9 U/L (10-37); BILIRUBIN,TOTAL 0.3 MG/DL (0.1-1.0); BLOOD UREA NITROGEN 6 MG/DL (7-18); BUN/CREATININE RATIO 9.2 (6.6-38.0); CHLORIDE 107 MMOL/L (99-107); CREATININE 0.65 MG/DL (0.40-0.90); GLUCOSE 102 MG/DL (70-104); POTASSIUM 3.5 MMOL/L (3.5-5.1); SODIUM 141 MMOL/L (135-145); TOTAL CARBON DIOXIDE 28.1 MMOL/L (24-32); TOTAL PROTEIN 7.6 G/DL (6.4-8.2); eGFR > 90 ML/MIN
[2020-01-28 15:42] LABS: ETHANOL < 0.010 GM/DL (0.0-0.010)
--- NOTE | 2020-01-28 15:50 | NUR ---
Pt states that she has a headache and is requesting "something" for it.
[2020-01-28] MEDS ORDERED: LEVO125T PO (15:54)
[2020-01-28] MEDS ORDERED: acetaminophen 325mg tablet PO ONE (16:00)
[2020-01-28 16:16] LABS: URINE HCG NEGATIVE (NEG)
[2020-01-28 16:17] LABS: CLARITY,URINE CLEAR (Clear); COLOR,URINE YELLOW (Yellow); GLUCOSE, URINE NEGATIVE (Neg); KETONES,URINE NEGATIVE (Neg); LEUKOCYTE ESTERASE ,URINE NEGATIVE (Neg); NITRITES, URINE NEGATIVE (Neg); OCCULT BLOOD,URINE NEGATIVE (Neg); PH,URINE 6.5 (4.8-8.0); PROTEIN,URINE NEGATIVE (Neg); UROBILINOGEN,URINE 0.2 E.U/dL (0.2-1.0)
[2020-01-28 16:18] LABS: UA COLLECTION TYPE CLN CATCH MIDSTREAM
[2020-01-28 16:23] LABS: URINE AMPHETAMINE SCREEN NEGATIVE (Neg); URINE BARBITUATE SCREEN NEGATIVE (Neg); URINE BENZODIAZEPINES SCREEN NEGATIVE (Neg); URINE CANNABINOID SCREEN POSITIVE (Neg); URINE COCAINE SCREEN NEGATIVE (Neg); URINE METHADONE SCREEN NEGATIVE (Neg); URINE OPIATE SCREEN NEGATIVE (Neg); URINE PHENCYCLIDINE SCREEN NEGATIVE (Neg)
--- NOTE | 2020-01-28 16:33 | NUR ---
PACKET FAXED TO [facility]
--- NOTE | 2020-01-28 16:39 | NUR ---
Pt ambulated to restroom with steady gait. No needs at this time.
--- NOTE | 2020-01-28 17:02 | NUR ---
Pt stating that she is feeling increasingly anxious and requesting medication. Spoke to Dr. Messer; Ativan to be ordered.
[2020-01-28] MEDS ORDERED: LORazepam 1 MG tablet PO ONE ×2 (17:05→23:00)
--- NOTE | 2020-01-28 17:36 | NUR ---
Nghia from [facility] at bedside interviewing pt.
--- NOTE | 2020-01-28 19:54 | NUR ---
[facility] STATES NOBODY WILL TAKE PT D/T HIGH TSH LEVEL. PT STARTED ON HIGHER DOSE OF SYNTRHOID. PT TAKES FIRST DOSE TOMORROW MORNING.
[2020-01-28] MEDS ORDERED: diphenhydrAMINE 25mg capsule PO ONE (23:00)
[2020-01-29] MEDS: levoTHYROXINE 125mcg tablet PO SCH (07:55)
[2020-01-29] MEDS: PARoxetine 10mg tablet PO SCH (07:55)
[2020-01-29] MEDS: LORazepam 1 MG tablet PO PRN ×2 (09:25→19:07)
--- NOTE | 2020-01-29 13:46 | NUR ---
Pt is sitting upright on the bed eating lunch. Pt is calm and cooperative with staff at this time. Pt is awaiting disposition from [facility].
--- NOTE | 2020-01-29 14:40 | NUR ---
Pt given a nicotine patch. Pt is in a position of comfort with even and unlabored respirations. Pt has sitter nearby.
[2020-01-29] MEDS ORDERED: nicotine 21mg patch - 24 hr TD ONE (15:00)
--- NOTE | 2020-01-29 15:37 | NUR ---
Pt is resting with respirations even and unlabored. Pt has a sitter at the bedside.
--- NOTE | 2020-01-29 16:31 | NUR ---
Pt is resting, no change in condition. Continuing to monitor.
--- NOTE | 2020-01-29 17:39 | NUR ---
Pt reports she has been taking her thyroid medication routinely and in late 2018 her TSH level was 98 and it is decreased to 25.32 at this time. Pt reports she is very aware of her thyroid levels and does not want to get off of her routine.
--- NOTE | 2020-01-29 19:00 | NUR ---
Pt laying in bed, reports feeling anxious.
--- NOTE | 2020-01-29 19:30 | NUR ---
PT given PRN ativan 1mg with good effect.
[2020-01-29] MEDS ORDERED: acetaminophen 325mg tablet PO ONE (20:40)
[2020-01-29] MEDS ORDERED: diphenhydrAMINE 25mg capsule PO ONE (20:40)
--- NOTE | 2020-01-29 21:00 | NUR ---
Pt requests a sleep aid and states she has a headache. PT given Benadryl 50mg PO x1 and Tylenol 325 mg PO x1
[2020-01-30] MEDS ORDERED: hydrOXYzine 25 MG tablet PO ONE (00:15)
[2020-01-30] MEDS: LORazepam 1 MG tablet PO PRN ×2 (01:50→08:17)
--- NOTE | 2020-01-30 01:59 | NUR ---
Pt awake, but resting quietly in bed. Pt denies any needs at this time.
--- NOTE | 2020-01-30 03:52 | NUR ---
pt resting with eyes closed RR 14
[2020-01-30 05:29] VITALS: BP 105/68
--- NOTE | 2020-01-30 06:34 | NUR ---
Assumed care of pt. She is sleeping on her left side in no apparent distress. Respirations are even and unlabored.
[2020-01-30] MEDS: PARoxetine 10mg tablet PO SCH (08:17)
[2020-01-30] MEDS: levoTHYROXINE 125mcg tablet PO SCH (08:17)
--- NOTE | 2020-01-30 08:33 | NUR ---
Pt up and eating breakfast. She took all medicztions as prescribed
[2020-01-30] MEDS ORDERED: nicotine 21mg patch - 24 hr TD ONE (09:15)
--- NOTE | 2020-01-30 09:27 | NUR ---
Pt requestng nicotine patch and smokes a pack a day. Patch ordered and placed.
--- NOTE | 2020-01-30 10:45 | NUR ---
Yamilet from [facility] called to get report on pt
--- NOTE | 2020-01-30 11:43 | NUR ---
Naomie from [place] office called to say client is accepted at [facility] by JOE Wyatt and will be leaving at 1330.
--- NOTE | 2020-01-30 13:01 | NUR ---
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 Client geting dressed. Client given all belongings including dentures and glasses and shoes and clothes
--- NOTE | 2020-01-30 13:05 | NUR ---
Pt off unit with [facility] commercial truck driver on her way to [facility].
== END 2020-01-30 13:11 ==
LOC: ER 13:09
DX: F31.9 Bipolar disorder, unspecified (principal); R45.851 Suicidal ideations; F12.90 Cannabis use, unspecified, uncomplicated; E03.9 Hypothyroidism, unspecified; K21.9 Gastro-esophageal reflux disease without esophagitis; F41.9 Anxiety disorder, unspecified; F15.90 Other stimulant use, unspecified, uncomplicated; Z88.6 Allergy status to analgesic agent; Z79.899 Other long term (current) drug therapy
CPT/HCPCS: 36415; 80053; 80305; 80320; 81003; 81025; 84443; 85025; 99285; Q0163; Z7610

== ENCOUNTER 2020-06-29 08:32 | Outpatient (CLI) | payer MEDICAID ==
[~2020-06-29 08:32] MED LIST changes: -ATOR20TA66 PO; -CLON0.1T2 PO; -LEVO100T PO; -LEVO100T9 PO; +LEVO125T PO; -NICO-668 MM; -PARO20TA6 PO; -QUET25TA34 PO
== END 2020-06-29 23:59 | disposition home or self-care (01) ==
LOC: RAD 08:32
DX: G40.909 Epilepsy, unspecified, not intractable, without status epilepticus (principal)
CPT/HCPCS: 95819

== ENCOUNTER 2020-07-14 05:25 | Emergency (ER) | payer MEDICAID ==
[~2020-07-14] VITALS: Ht 162.6 cm; Wt 113.6 kg
[2020-07-14] MEDS ORDERED: ketorolac trometh. 30mg/ml inj. IM ONE (06:35)
[2020-07-14] MEDS ORDERED: NAPR-56 PO (07:20)
[2020-07-14 07:31] VITALS: BP 117/80
== END 2020-07-14 07:30 | disposition home or self-care (01) ==
LOC: ER 05:26
DX: M25.511 Pain in right shoulder (principal); K21.9 Gastro-esophageal reflux disease without esophagitis; E03.9 Hypothyroidism, unspecified; F41.9 Anxiety disorder, unspecified; F31.9 Bipolar disorder, unspecified; F12.90 Cannabis use, unspecified, uncomplicated; F15.90 Other stimulant use, unspecified, uncomplicated; Z79.899 Other long term (current) drug therapy
CPT/HCPCS: 73030; 96372; 99284; J1885

== ENCOUNTER 2025-01-30 10:39 | Inpatient (IN) | payer MEDICAID ==
[~2025-01-30] VITALS: Ht 162.6 cm; Wt 106.0 kg
[2025-01-30] MEDS ORDERED: BENZ-111 (11:45)
[2025-01-30] MEDS ORDERED: PRED20TA PO (11:45)
[2025-01-30] MEDS ORDERED: ALPR1TAB7 (11:45)
[2025-01-30] MEDS ORDERED: ALBU10.7 (11:45)
[2025-01-30] MEDS ORDERED: PARO20TA6 PO (11:45)
[2025-01-30] MEDS ORDERED: AMOX-580 (11:45)
[2025-01-30] MEDS ORDERED: AZIT-164 (11:45)
[2025-01-30] MEDS ORDERED: PRED50TA (11:45)
[2025-01-30] MEDS ORDERED: GUAI120L55 PO (11:45)
[2025-01-30] MEDS ORDERED: ZOLPIDEM (11:45)
[2025-01-30 12:08] LABS: BASOPHILS # (AUTO) 0.1 X10'3 (0-0.2); BASOPHILS % (AUTO) 0.9 % (0-1); EOSINOPHILS # (AUTO) 0.1 X10'3 (0-0.9); EOSINOPHILS % (AUTO) 1.2 % (0-6); HEMATOCRIT 41.3 % (35.0-45.0); HEMOGLOBIN 13.2 g/dl (12.0-16.0); LYMPHOCYTES # (AUTO) 3.3 X10'3 (1.1-4.8); LYMPHOCYTES % (AUTO) 28.1 % (21-51); MEAN CORPUSCULAR HGB CONC 32.1 g/dL (33.0-36.5); MEAN CORPUSCULAR VOLUME 87.5 FL (78-98); MEAN PLATELET VOLUME 7.8 FL (7.4-10.4); MONOCYTES % (AUTO) 8.7 % (2-12); NEUTROPHILS # (AUTO) 7.2 X10'3 (1.8-7.7); NEUTROPHILS % (AUTO) 61.1 % (42-75); PLATELET COUNT 406 X10'3 (140-440); RED BLOOD COUNT 4.72 X10'6 (4.20-5.60); RED CELL DISTRIBUTION WIDTH 15.6 % (11.5-14.5); WHITE BLOOD COUNT 11.8 X10'3 (4.5-11.0)
[2025-01-30 12:10] LABS: BILIRUBIN,URINE NEGATIVE (Neg); COLOR,URINE YELLOW (Yellow); GLUCOSE, URINE NEGATIVE (Neg); KETONES,URINE TRACE mg/dl (Neg); LEUKOCYTE ESTERASE ,URINE NEGATIVE (Neg); NITRITES, URINE NEGATIVE (Neg); OCCULT BLOOD,URINE NEGATIVE (Neg); PROTEIN,URINE NEGATIVE (Neg); URINE HCG NEGATIVE (NEG); UROBILINOGEN,URINE 0.2 E.U/dL (0.2-1.0)
[2025-01-30 12:16] LABS: URINE AMPHETAMINE SCREEN POSITIVE (Neg); URINE BARBITUATE SCREEN NEGATIVE (Neg); URINE BENZODIAZEPINES SCREEN POSITIVE (Neg); URINE CANNABINOID SCREEN POSITIVE (Neg); URINE COCAINE SCREEN NEGATIVE (Neg); URINE METHADONE SCREEN NEGATIVE (Neg); URINE OPIATE SCREEN NEGATIVE (Neg); URINE PHENCYCLIDINE SCREEN NEGATIVE (Neg)
[2025-01-30 12:20] LABS: CLARITY,URINE SLIGHTLY CLOUDY (Clear); UA COLLECTION TYPE CLN CATCH MIDSTREAM
[2025-01-30 12:22] LABS: ALBUMIN 3.4 G/DL (3.4-5.0); ANION GAP 6 (8-16); BLOOD UREA NITROGEN 15 MG/DL (7-18); BUN/CREATININE RATIO 17.4 (10.0-20.0); CALCIUM 8.7 MG/DL (8.5-10.1); CHLORIDE 106 MMOL/L (99-107); CREATININE 0.86 MG/DL (0.40-0.90); ETHANOL < 10 MG/DL (<10); GLUCOSE 61 MG/DL (70-104); POTASSIUM 3.1 MMOL/L (3.5-5.1); SODIUM 144 MMOL/L (135-145); TOTAL CARBON DIOXIDE 32.2 MMOL/L (24-32); eCRCL 65 ML/MIN; eGFR 69 ML/MIN
[2025-01-30 12:22] LABS: BACTERIA,URINE 1+ /HPF (Neg); RBC,URINE 0-2 /HPF (0-2); SQUAMOUS EPITHELIAL CELL,UR MODERATE /LPF (FEW)
[2025-01-30 12:23] LABS: CAL OXALATE CRYSTALS 4+ /HPF (NEGATIVE); RENAL CELLS, URINE MODERATE /HPF; TRANSITIONAL EPI CELLS,URINE FEW /HPF
[2025-01-30 12:27] LABS: THYROID STIMULATING HORMONE 68.92 ulU/ml (0.34-4.50)
[2025-01-30] MEDS: cephalexin 250mg capsule PO ONE (16:19)
[2025-01-30] MEDS: potassium Cl 20 mEq SR tablet PO STA (16:20)
[2025-01-30] MEDS ORDERED: ALPR-624 PO (18:43)
[2025-01-30] MEDS ORDERED: ZOLP10TA PO (18:43)
[2025-01-30] MEDS ORDERED: ALBU10.7 INH (18:43)
[2025-01-30] MEDS ORDERED: ALPR-13 PO (18:55)
[2025-01-30] MEDS: ALPRAZolam 0.5mg tablet PO ONE (19:30)
[2025-01-30] MEDS: nicotine 21mg patch - 24 hr TD ONE (19:31)
[2025-01-30] MEDS ORDERED: ALBUTEROL SULFATE IH PRN (20:20)
[2025-01-30] MEDS ORDERED: BUDESONIDE IH PRN (20:20)
[2025-01-30] MEDS: ALPRAZolam 0.5mg tablet PO SCH (20:31)
[2025-01-30] MEDS: zolpidem 5mg tablet PO PRN (20:31)
[2025-01-30] MEDS: cephalexin 250mg capsule PO SCH (20:31)
[2025-01-31] MEDS: PARoxetine 20mg tablet PO SCH (07:15)
[2025-01-31 15:20] VITALS: BP 128/93; PULSE 76; RESP 14; TEMP 98.2; O2SAT 97
[2025-01-31] MEDS ORDERED: mag hydrox/Alum hydrox/simeth 30ml oral suspension PO PRN (15:45)
[2025-01-31] MEDS ORDERED: loperamide 2mg capsule PO PRN (15:45)
[2025-01-31] MEDS ORDERED: acetaminophen 325mg tablet PO PRN (15:45)
[2025-01-31 16:36] VITALS: RESP 14; O2SAT 97
[2025-01-31] MEDS: acetaminophen 325mg tablet PO PRN (16:59)
[2025-01-31] MEDS: albuterol 2.5 MG/3 ML nebule NEB PRN (17:50)
[2025-01-31 17:52] VITALS: PULSE 59; RESP 18; O2SAT 98
[2025-01-31 18:01] VITALS: PULSE 61; RESP 16
[2025-01-31 19:00] VITALS: BP 116/76; PULSE 74; RESP 16; TEMP 97.4; O2SAT 96
[2025-01-31] MEDS ORDERED: cephalexin 500mg capsule PO SCH (21:12)
[2025-01-31] MEDS: cephalexin 500mg capsule PO SCH (21:26)
[2025-02-01 07:00] VITALS: BP 101/60; PULSE 60; RESP 16; TEMP 98.3; O2SAT 95
[2025-02-01] MEDS ORDERED: nicotine 7mg patch - 24hr TD SCH (08:00)
[2025-02-01 09:54] LABS: HEMOGLOBIN A1C 6.2 % (4.5-6.2)
[2025-02-01 10:26] LABS: THYROID STIMULATING HORMONE 87.92 ulU/ml (0.34-4.50)
[2025-02-01] MEDS: nicotine 7mg patch - 24hr TD SCH (13:14)
[2025-02-01 13:17] VITALS: PULSE 64; RESP 16; O2SAT 97
[2025-02-01 13:22] VITALS: PULSE 66; RESP 16
[2025-02-01] MEDS ORDERED: potassium Cl 20 mEq SR tablet PO PRN ×2 (16:50)
[2025-02-01 18:18] LABS: PHOSPHORUS 4.4 MG/DL (2.3-4.5)
[2025-02-01 19:00] VITALS: RESP 14; O2SAT 100
[2025-02-01 19:14] VITALS: BP 99/57; PULSE 67; RESP 14; TEMP 97.4; O2SAT 100
[2025-02-01] MEDS: K, MAG and/or Phos replacement - Verify level? MC SCH (19:30)
[2025-02-01 19:42] LABS: BILIRUBIN,URINE NEGATIVE (Neg); CLARITY,URINE CLEAR (Clear); COLOR,URINE YELLOW (Yellow); GLUCOSE, URINE NEGATIVE (Neg); KETONES,URINE NEGATIVE (Neg); LEUKOCYTE ESTERASE ,URINE TRACE (Neg); NITRITES, URINE NEGATIVE (Neg); OCCULT BLOOD,URINE NEGATIVE (Neg); PROTEIN,URINE NEGATIVE (Neg); UROBILINOGEN,URINE 0.2 E.U/dL (0.2-1.0)
[2025-02-01 19:45] LABS: UA COLLECTION TYPE NON-SPECIFIED
[2025-02-01 19:54] LABS: BACTERIA,URINE 1+ /HPF (Neg); RBC,URINE NONE SEEN /HPF (0-2); SQUAMOUS EPITHELIAL CELL,UR MODERATE /LPF (FEW)
[2025-02-01 20:28] VITALS: PULSE 76; RESP 18; O2SAT 98
[2025-02-02 07:00] VITALS: RESP 12; O2SAT 96
[2025-02-02] MEDS: levoTHYROXINE 100mcg tablet PO SCH (07:21)
[2025-02-02] MEDS: pantoprazole 40mg Tablet.DR PO SCH (07:21)
[2025-02-02] MEDS: prednisone 10mg tablet PO SCH (07:42)
[2025-02-02] MEDS: nicotine 7mg patch - 24hr TD SCH (07:51)
[2025-02-02 08:00] VITALS: BP 102/63; PULSE 54; RESP 12; TEMP 97.6; O2SAT 96
[2025-02-02 09:19] LABS: CHOL/HDL RATIO 5.7 (0.00-4.99); CHOLESTEROL 233 MG/DL (0-200); HDL CHOLESTEROL 41 MG/DL (35-60); LDL CHOLESTEROL 115 MG/DL (50-100); PHOSPHORUS 4.3 MG/DL (2.3-4.5); POTASSIUM 4.1 MMOL/L (3.5-5.1); TRIGLYCERIDES 541 MG/DL (20-135)
[2025-02-02 19:00] VITALS: RESP 16; O2SAT 94
[2025-02-02 19:21] VITALS: BP 105/65; PULSE 66; RESP 16; TEMP 97.9; O2SAT 94
[2025-02-02 20:13] VITALS: PULSE 67; RESP 16; O2SAT 99
[2025-02-02 20:18] VITALS: PULSE 69; RESP 16
[2025-02-03 05:14] LABS: HBSAG SCREEN Negative (Negative); HEP B CORE AB, IGM Negative (Negative); HEP B CORE AB, TOT Negative (Negative); HEP B SURF AB Non Reactive (.)
[2025-02-03 07:00] VITALS: RESP 18; O2SAT 100
[2025-02-03 07:55] VITALS: PULSE 60; RESP 18; O2SAT 97
[2025-02-03 08:00] VITALS: BP 114/73; PULSE 68; RESP 16; TEMP 97.1; O2SAT 94
[2025-02-03] MEDS: PARoxetine 10mg tablet PO SCH (08:05)
[2025-02-03 19:00] VITALS: RESP 17; O2SAT 96
[2025-02-03 20:00] VITALS: BP 127/92; PULSE 78; RESP 17; TEMP 98; O2SAT 96
[2025-02-03] MEDS: magnesium hydroxide 30ml (MOM) UD suspension PO PRN (20:58)
[2025-02-03 22:19] VITALS: BP 127/92; PULSE 78; RESP 17; TEMP 98; O2SAT 96
[2025-02-04 07:30] VITALS: BP 112/54; PULSE 57; RESP 14; TEMP 98.3; O2SAT 93
[2025-02-04 14:17] VITALS: PULSE 66; RESP 18; O2SAT 97
[2025-02-04 14:57] LABS: BILIRUBIN,URINE NEGATIVE (Neg); CLARITY,URINE CLOUDY (Clear); COLOR,URINE YELLOW (Yellow); GLUCOSE, URINE NEGATIVE (Neg); KETONES,URINE TRACE mg/dl (Neg); LEUKOCYTE ESTERASE ,URINE SMALL (Neg); NITRITES, URINE NEGATIVE (Neg); OCCULT BLOOD,URINE NEGATIVE (Neg); PH,URINE 7.5 (4.8-8.0); PROTEIN,URINE 30 mg/dl (Neg); UROBILINOGEN,URINE 0.2 E.U/dL (0.2-1.0)
[2025-02-04 15:04] LABS: UA COLLECTION TYPE CLN CATCH MIDSTREAM
[2025-02-04 15:08] LABS: BACTERIA,URINE 4+ /HPF (Neg); MUCUS STRANDS FEW /LPF (Neg); RBC,URINE NONE SEEN /HPF (0-2)
[2025-02-04 15:09] LABS: SQUAMOUS EPITHELIAL CELL,UR MANY /LPF (FEW); TRICHOMONAS,URINE MANY /HPF (NEGATIVE)
[2025-02-04 15:22] LABS: ALANINE AMINOTRANSFERASE 55 U/L (12-78); ALBUMIN 3.5 G/DL (3.4-5.0); ALBUMIN/GLOBULIN RATIO 0.8 (1.1-1.5); ALKALINE PHOSPHATASE 101 IU/L (46-116); ANION GAP 4 (8-16); ASPARTATE AMINO TRANSFERASE 46 U/L (10-37); BILIRUBIN,TOTAL 0.4 MG/DL (0.1-1.0); BLOOD UREA NITROGEN 18 MG/DL (7-18); CALCIUM 8.4 MG/DL (8.5-10.1); CHLORIDE 106 MMOL/L (99-107); CREATININE 1.06 MG/DL (0.40-0.90); GLUCOSE 105 MG/DL (70-104); POTASSIUM 4.6 MMOL/L (3.5-5.1); SODIUM 140 MMOL/L (135-145); TOTAL CARBON DIOXIDE 29.9 MMOL/L (24-32); TOTAL PROTEIN 7.7 G/DL (6.4-8.2); eCRCL 53 ML/MIN; eGFR 54 ML/MIN
[2025-02-04] MEDS: cyclobenzaprine 10mg tablet PO SCH (16:20)
[2025-02-04 19:00] VITALS: RESP 17; O2SAT 93
[2025-02-04 20:00] VITALS: BP 125/89; PULSE 67; RESP 17; TEMP 97.9; O2SAT 93
[2025-02-04] MEDS: gemfibrozil 600mg tablet PO SCH (20:00)
[2025-02-04] MEDS: ciprofloxacin 250mg tablet PO SCH (21:19)
[2025-02-05 07:30] VITALS: BP 114/79; PULSE 59; RESP 15; TEMP 98.9; O2SAT 93
[2025-02-05] MEDS: potassium chloride 10mEq ER tablet PO SCH (07:36)
[2025-02-05] MEDS: atorvastatin 20mg tablet PO SCH (07:48)
[2025-02-05] MEDS: LIDOcaine 5% patch TP SCH (07:53)
[2025-02-05 19:00] VITALS: RESP 16; O2SAT 96
[2025-02-05 20:00] VITALS: BP 118/84; PULSE 75; RESP 16; TEMP 98.2; O2SAT 96
[2025-02-05] MEDS: polyethylene glycol 3350 17gm powd pack PO ONE (20:48)
[2025-02-06 07:30] VITALS: BP 100/63; PULSE 63; RESP 16; TEMP 97.9; O2SAT 93
[2025-02-06 19:00] VITALS: RESP 18; O2SAT 99
[2025-02-06 19:58] VITALS: BP 128/91; PULSE 71; RESP 16; TEMP 98.2; O2SAT 98
[2025-02-07 07:19] VITALS: BP 107/68; PULSE 60; RESP 16; TEMP 97.6; O2SAT 94
[2025-02-07 08:00] VITALS: RESP 16; O2SAT 94
[2025-02-07 19:00] VITALS: RESP 16; O2SAT 95
[2025-02-07 20:11] VITALS: BP 104/63; PULSE 78; RESP 16; TEMP 97; O2SAT 95
[2025-02-08 07:34] VITALS: BP 106/80; PULSE 60; RESP 15; TEMP 98; O2SAT 94
[2025-02-08 08:00] VITALS: RESP 15; O2SAT 94
[2025-02-08 19:00] VITALS: RESP 16; O2SAT 95
[2025-02-08 19:43] VITALS: BP 122/81; PULSE 76; RESP 16; TEMP 97.8; O2SAT 95
[2025-02-09] MEDS: PARoxetine 20mg tablet PO SCH (07:10)
[2025-02-09 07:37] VITALS: BP 116/80; PULSE 62; RESP 16; TEMP 97.5; O2SAT 92
[2025-02-09 08:00] VITALS: RESP 16; O2SAT 92
[2025-02-09] MEDS ORDERED: PANT40TA54 PO (13:29)
[2025-02-09] MEDS ORDERED: GEMF600T PO (13:29)
[2025-02-09] MEDS ORDERED: CYCL-1 PO (13:29)
[2025-02-09] MEDS ORDERED: ATOR20TA66 PO (13:29)
[2025-02-09] MEDS ORDERED: LEVO100T9 PO (13:29)
[2025-02-09] MEDS ORDERED: ALBU10.7 INH (13:29)
[2025-02-09] MEDS ORDERED: PARO20TA6 PO (13:29)
[2025-02-09] MEDS ORDERED: LIDO700A47 TP (13:29)
[2025-02-09] MEDS ORDERED: PRED10TA PO (13:31)
[2025-02-09] MEDS ORDERED: ALPR-13 PO (13:31)
[2025-02-09 20:00] VITALS: BP 103/55; PULSE 71; RESP 14; TEMP 97.6; O2SAT 93
[2025-02-09 20:13] VITALS: RESP 18; O2SAT 97
[2025-02-09 20:45] VITALS: RESP 14; O2SAT 93
[2025-02-10 07:00] VITALS: RESP 13; O2SAT 92
[2025-02-10] MEDS: levoTHYROXINE 125mcg tablet PO SCH (07:25)
[2025-02-10 08:00] VITALS: BP 92/52; PULSE 58; RESP 13; TEMP 97.4; O2SAT 92
[2025-02-10 19:00] VITALS: RESP 17; O2SAT 96
[2025-02-10 20:00] VITALS: BP 116/62; PULSE 78; RESP 17; TEMP 98.7; O2SAT 96
[2025-02-11 07:45] VITALS: RESP 18; O2SAT 100
[2025-02-11 08:32] VITALS: BP 107/64; PULSE 96; RESP 18; TEMP 98.3; O2SAT 100
== END 2025-02-11 11:15 | DRG 751 ==
LOC: ER 10:39 → UNDOADMIN 01-31 15:16 → ED HOLD 01-31 15:16 → ADULT MH 01-31 15:27 → ED HOLD 01-31 15:27 → ADULT MH 01-31 15:33 → ED HOLD 01-31 17:18 → ADULT MH 01-31 17:18
PROVIDERS: ADMIT Psychiatry & Neurology Psychiatry; ATTEND Psychiatry & Neurology Psychiatry
PROC: GZHZZZZ Group Psychotherapy (ICD-10-PCS; principal; 2025-01-31)
PROC: GZ51ZZZ Individual Psychotherapy, Behavioral (ICD-10-PCS; 2025-01-31)
DX: F33.9 Major depressive disorder, recurrent, unspecified (principal); R45.851 Suicidal ideations; E03.9 Hypothyroidism, unspecified; E87.6 Hypokalemia; F12.10 Cannabis abuse, uncomplicated; E66.01 Morbid (severe) obesity due to excess calories; Z20.822 Contact with and (suspected) exposure to COVID-19; F17.210 Nicotine dependence, cigarettes, uncomplicated; J44.9 Chronic obstructive pulmonary disease, unspecified; K21.9 Gastro-esophageal reflux disease without esophagitis; F41.9 Anxiety disorder, unspecified; F43.10 Post-traumatic stress disorder, unspecified; F15.129 Other stimulant abuse with intoxication, unspecified; N30.00 Acute cystitis without hematuria; Z79.899 Other long term (current) drug therapy; Z68.41 Body mass index [BMI] 40.0-44.9, adult; Z86.16 Personal history of COVID-19; Z86.73 Personal history of transient ischemic attack (TIA), and cerebral infarction without residual deficits
CPT/HCPCS: 36415; 71045; 80048; 80053; 80061; 80305; 80320; 81001; 81025; 83036; 83735; 84100; 84132; 84443; 84480; 85025; 86704; 86705; 86706; 87081; 87340; 87811; 94640; 94760; 99285; C2617; J7512

== ENCOUNTER 2025-06-16 09:50 | Emergency (ER) | payer MEDICAID ==
[~2025-06-16] VITALS: Ht 162.6 cm; Wt 100.0 kg
[~2025-06-16 09:50] MED LIST changes: +ALBU10.7 INH; +ALPR-13 PO; +ATOR20TA66 PO; +CYCL-1 PO; +GEMF600T PO; +LEVO100T9 PO; -LEVO125T PO; +LIDO700A47 TP; +PANT40TA54 PO; +PARO20TA6 PO; +PRED10TA PO
[2025-06-16 09:52] VITALS: TEMP 98.4
--- NOTE | 2025-06-16 10:05 | Physician Documentation ---
History of Present Illness ~ Chief Complaint: Flank Pain Stated Complaint: BACK PAIN Time Seen by MD: 10:05 Primary Medical Doctor: MD ANDRES AT [facility] Patient presents to the emergency room with report of flank pain. Also endorses history of urinary frequency. Symptoms has been going on in the past 1-2 weeks. She has taken Flexeril for her pain but nothing else. No fevers. Medication Reconciliation Allergies: Coded Allergies: No Known Drug Allergies (Verified Allergy, Unknown, 06/16/25) Scheduled Alprazolam (Xanax), 1 MG PO TID Atorvastatin Calcium (Atorvastatin Calcium), 20 MG PO DAILY Cyclobenzaprine* (Cyclobenzaprine*), 10 MG PO Q8H Gemfibrozil (Lopid), 600 MG PO BID Levothyroxine Sodium (Levothyroxine Sodium), 100 MCG PO DAILY@07 Lidocaine (Lidocaine), 2 PATCH TP DAILY Pantoprazole Sodium (Pantoprazole Sodium), 40 MG PO BKF Paroxetine HCl (Paroxetine HCl), 40 MG PO DAILY Prednisone (Prednisone), 10 MG PO QAM@0830 Scheduled PRN Albuterol Sulfate/Budesonide (Airsupra 90-80 Mcg Inhaler), 2 PUFFS INH Q4H PRN for SOB or wheezing Past Medical History Past Medical History: Pneumonia, GERD, Hypothyroidism, Anxiety, Bipolar, Depression Past Surgical History: noncontributory Alcohol Use: Rarely Drug Use: marijuana, methamphetamine Lives In: Home Review of Systems ROS All review of systems negative except as per HPI Physical Exam Physical Exam Vital Signs: Temperature: 98.4, Source: Temporal, Heart Rate: 77, Respiratory Rate: 20, BP: 145/93, Pulse Oximetry: 98, Weight: 100.000 Oxygen Flow Rate: 0 Physical Exam General: Patient is awake, alert, oriented x4 in mild distress Head: Normocephalic and atraumatic. Eyes: Conjunctival normal. EOMI. PERRL. ENT: Mucous membranes moist. Neck: Supple, trachea is midline. Chest: Clear to auscultation bilaterally without rales, rhonchi, or wheezes. There is no accessory muscle use or retractions. Cardiac: RRR without murmurs, gallops, or rubs. Abd: Soft, nondistended, nontender, with normoactive bowel sounds. No guarding, rebound, or rigidity. Extremities: Normal strength. Normal range of motion. No deformities or edema. Back: No midline spinal tenderness. Positive CVA tenderness bilaterally. Progress Results/Orders Results/Orders Orders - DRISS VILLEGAS MD Ct Abdomen Pelvis (06/16/25 10:46) Cult Urine + [place] Ct (06/16/25 10:38) Completed Orders - DRISS VILLEGAS MD Cbc/Diff (06/16/25 09:59) Lipase (06/16/25 09:59) CMP (06/16/25 09:59) Ct Abdomen Pelvis (06/16/25 10:46) Orphenadrine Citrate Inj. (Norflex Inj.) (06/16/25 10:10) Ketorolac Trometh 15mg/Ml Vial (Toradol (06/16/25 10:10) Acetaminophen 325mg Tablet (Tylenol Tabl (06/16/25 10:10) Morphine 4mg/Ml Inj. (Morphine Inj.) (06/16/25 10:10) Ondansetron Inj. (Zofran 4mg/2ml Vial) (06/16/25 10:10) Procalcitonin (06/16/25 10:09) Ua W/Microscopic, Cult If Ind (06/16/25 09:58) Medications Received in ER Medications (Trade) Dose Ordered Sig/[place] Route PRN Reason Start Time Stop Time Status Last Admin Dose Admin (Norflex inj.) 60 mg ONCE ONCE IM 06/16/25 10:10 06/16/25 10:11 DC 06/16/25 10:21 60 MG (Toradol injection) 15 mg ONCE ONCE IV 06/16/25 10:10 06/16/25 10:11 DC 06/16/25 10:22 15 MG (Tylenol tablet) 975 mg ONCE ONCE PO 06/16/25 10:10 06/16/25 10:11 DC 06/16/25 10:20 975 MG (morphine inj.) 4 mg ONCE ONCE IV 06/16/25 10:10 06/16/25 10:11 DC 06/16/25 10:21 4 MG (Zofran 4mg/2ml vial) 4 mg ONCE ONCE IV 06/16/25 10:10 06/16/25 10:11 DC 06/16/25 10:22 4 MG Vital Signs 06/16/25 06/16/25 06/16/25 06/16/25 09:52 10:05 10:21 10:22 Temp 98.4 Pulse 77 71 Resp 20 16 18 16 B/P (MAP) 145/93 124/85 (98) Pulse Ox 98 97 O2 Flow Rate 0 0 06/16/25 06/16/25 06/16/25 06/16/25 10:38 10:42 11:24 11:24 Pulse 67 Resp 14 14 14 14 B/P (MAP) 109/73 (85) Pulse Ox 94 O2 Flow Rate 0 06/16/25 11:25 Pulse 67 Resp 14 B/P (MAP) 119/76 (90) Pulse Ox 94 O2 Flow Rate 2.0 Laboratory Tests Test 06/16/25 09:58 06/16/25 10:13 Urine Specimen Description Voided Urine Color Yellow Urine Clarity Clear Urine pH 6.0 Urine Specific [place] <=1.005 Urine Protein Negative Urine Glucose (UA) Negative Urine Ketones Negative Urine Occult Blood Negative Urine Nitrite Negative Urine Bilirubin Negative Urine Urobilinogen 0.2 Urine Leukocyte Esterase Trace H Urine RBC 3-10 Urine WBC 0-4 Urine Squamous Epithelial Cells Few Urine Bacteria 1+ Urine Mucus Few Urine Culture Indicated Indicated Volume Urine Centrifuged 10 ml Urine Comment White Blood Count 10.8 Red Blood Count 4.85 Hemoglobin 13.3 Hematocrit 40.7 Mean Corpuscular Volume 83.9 Mean Corpuscular Hemoglobin 27.5 Mean Corpuscular Hemoglobin Concent 32.8 L Red Cell Distribution Width 16.8 H Platelet Count 349 Mean Platelet Volume 7.6 Neutrophils (%) (Auto) 64.6 Lymphocytes (%) (Auto) 23.5 Monocytes (%) (Auto) 4.5 Eosinophils (%) (Auto) 6.2 H Basophils (%) (Auto) 1.2 H Neutrophils # (Auto) 7.0 Lymphocytes # (Auto) 2.5 Monocytes # (Auto) 0.5 Eosinophils # (Auto) 0.7 Basophils # (Auto) 0.1 CBC Comment Sodium Level 138 Potassium Level 4.6 Chloride Level 102 Carbon Dioxide Level 27.5 Anion Gap 9 Blood Urea Nitrogen 14 Creatinine 0.82 Estimated GFR/1.73 m2 73 BUN/Creatinine Ratio 17.1 Glucose Level 91 Calcium Level 9.0 Total Bilirubin 0.4 Aspartate Amino Transf (AST/SGOT) 25 Alanine Aminotransferase (ALT/SGPT) 35 Alkaline Phosphatase 128 H Total Protein 8.1 Albumin 4.2 Globulin 3.9 Albumin/Globulin Ratio 1.1 Lipase 55 Procalcitonin < 0.05 Chemistry Comments Microbiology Date/Time Source Procedure Growth Status 06/16/25 10:38 Urine Voided Urine Culture - Preliminary Culture received. Resulted Medical Decision Making Findings Patient presents to the emergency room with back pain as per HPI. Differentials include but are not limited to pyelonephritis, lumbago, aortic pathology, kidney stone therefore emergent labs and imaging indicated. Labs and imaging reassuring. Patient is suffering likely from muscle strain and we will treat her as such. Departure Disposition: HOME / SELF CARE / HOMELESS Impression: Primary Impression: Lumbago Condition: Stable Discharge Instructions: Lumbosacral Strain Additional Instructions: Stay moving and avoid bedrest Referrals: NO PRIMARY CARE PROVIDER (PCP) Prescriptions Hydrocodone Bit/Acetaminophen 5/325 MG ([place] 5/325 MG) 5 Mg/325 Mg Tablet 1-2 TAB PO Q4-6 hours PRN for pain, #10 TAB Prov: DRISS VILLEGAS MD 06/16/25 Cyclobenzaprine* (Cyclobenzaprine*) 10 Mg Tablet 1 TAB PO Q8H for muscle spasms for 10 Days, #30 TAB 0 Refills Prov: DRISS VILLEGAS MD 06/16/25 Acetaminophen (Tylenol Extra Strength) 500 Mg Tablet 2 TAB PO Q6H PRN PRN for pain or fever for 7 Days, #56 TAB Prov: DRISS VILLEGAS MD 06/16/25 Ibuprofen* (Motrin*) 400 Mg Tablet 800 MG PO Q8H, #30 TAB Prov: DRISS VILLEGAS MD 06/16/25 Education Educated: Patient Educated regarding: diagnosis, treatment, need for follow up Signature Scribe Signature: No scribe Attestation: The note accurately reflects work and decisions made by me.Driss Villegas MD 06/16/25 11:55 DRISS VILLEGAS MD Jun 16, 2025 10:05
[2025-06-16] MEDS: morphine 4 MG/ML inj SYRINge IV ONE (10:21)
[2025-06-16] MEDS: orphenadrine citrate 60mg/2ml inj. IM ONE (10:21)
[2025-06-16] MEDS: ondansetron/PF 4mg/2ml inj IV ONE (10:22)
[2025-06-16] MEDS: ketorolac trometh 15mg/ml vial 15 MG/ML ML IV ONE (10:22)
[2025-06-16 10:23] LABS: MEAN PLATELET VOLUME 7.6 FL (7.4-10.4); RED CELL DISTRIBUTION WIDTH 16.8 % (11.5-14.5)
[2025-06-16 10:29] LABS: LEUKOCYTE ESTERASE ,URINE TRACE (Neg); NITRITES, URINE NEGATIVE (Neg); OCCULT BLOOD,URINE NEGATIVE (Neg)
[2025-06-16 10:35] LABS: UA COLLECTION TYPE VOIDED
[2025-06-16 10:36] LABS: SQUAMOUS EPITHELIAL CELL,UR FEW /LPF (FEW)
[2025-06-16 10:37] LABS: MUCUS STRANDS FEW /LPF (Neg)
[2025-06-16 11:06] LABS: CREATININE 0.82 MG/DL (0.40-0.90); TOTAL CARBON DIOXIDE 27.5 MMOL/L (24-32); eCRCL 69 ML/MIN; eGFR 73 ML/MIN
--- NOTE | 2025-06-16 11:47 | RADIOLOGY REPORT ---
CLINICAL HISTORY: flank pain TECHNIQUE: CT of the abdomen and pelvis was performed withwithout intravenous contrast this exam was performed according to our departmental dose optimization program. Up-to-date CT equipment and radia tion dose reduction techniques are utilized as appropriate. WID: COMPARISON: None FINDINGS: The image lower lungs are unremarkable. Status post cholecystectomy. The liver measures 22 cm. The spleen, pancreas, adrenal glands, kidneys, urinary bladder, uterus and adnexa are unremarkable. Small hiatal hernia. Small bowel and appendix are within normal limits. Minimal sigmoid diverticula. The abdominal aorta is normal in caliber. Chronic L5 pars defects at L5 resulting in 7 mm of anterolisthesis of L5 on S1. There is moderate dis cogenic degenerative change at L5-S1 with disc height loss and vacuum disc phenomena. IMPRESSION: 1. Hepatomegaly 2. Small hiatal hernia 3. Status post cholecystectomy 4. Minimal sigmoid diverticulosis 5. Grade 1 anterolisthesis of L5 on S1 secondary to chronic L5 pars defects
[2025-06-16] MEDS ORDERED: ACET-2615 PO (11:55)
[2025-06-16] MEDS ORDERED: CYCL-1 PO (11:55)
[2025-06-16] MEDS ORDERED: HYDR-3965 PO (11:55)
[2025-06-16] MEDS ORDERED: IBUP-1984 PO (11:55)
[2025-06-16 12:29] VITALS: BP 112/45; PULSE 60; RESP 16; O2SAT 93
== END 2025-06-16 12:32 | disposition home or self-care (01) ==
LOC: ER 09:50
DX: M54.50 Low back pain, unspecified (principal); F31.9 Bipolar disorder, unspecified; F12.90 Cannabis use, unspecified, uncomplicated; F15.90 Other stimulant use, unspecified, uncomplicated; E03.9 Hypothyroidism, unspecified; K21.9 Gastro-esophageal reflux disease without esophagitis; F41.9 Anxiety disorder, unspecified; Z79.899 Other long term (current) drug therapy
CPT/HCPCS: 74176; 80053; 81001; 83690; 84145; 85025; 87088; 96372; 96374; 96375; 99285; J1885; J2270; J2360; J2405; A4615

== ENCOUNTER 2025-08-04 14:53 | Emergency (ER) | payer MEDICAID ==
[~2025-08-04] VITALS: Ht 162.6 cm; Wt 124.3 kg
[2025-08-04 15:05] VITALS: BP 146/87; TEMP 98.2
--- NOTE | 2025-08-04 15:15 | Physician Documentation ---
History of Present Illness ~ General Chief Complaint: General Stated Complaint: LOW O2 Time Seen by MD: 15:13 Primary Medical Doctor: MD ANDRES AT [facility] History of Present Illness Initial Comments This is a 54-year-old female with a history of smoking who presents after being seen by [employer] worker who was concern for patient's low SpO2, in triage SpO2 reading is normal. Patient reports no shortness of breath or chest pain and reports no other acute symptoms or concerns. Medication Reconciliation Allergies: Coded Allergies: No Known Drug Allergies (Verified Allergy, Unknown, 06/16/25) Scheduled Alprazolam (Xanax), 1 MG PO TID Atorvastatin Calcium (Atorvastatin Calcium), 20 MG PO DAILY Cyclobenzaprine* (Cyclobenzaprine*), 10 MG PO Q8H Cyclobenzaprine* (Cyclobenzaprine*), 1 TAB PO Q8H Gemfibrozil (Lopid), 600 MG PO BID Levothyroxine Sodium (Levothyroxine Sodium), 100 MCG PO DAILY@07 Lidocaine (Lidocaine), 2 PATCH TP DAILY Pantoprazole Sodium (Pantoprazole Sodium), 40 MG PO BKF Paroxetine HCl (Paroxetine HCl), 40 MG PO DAILY Prednisone (Prednisone), 10 MG PO QAM@0830 Scheduled PRN Albuterol Sulfate/Budesonide (Airsupra 90-80 Mcg Inhaler), 2 PUFFS INH Q4H PRN for SOB or wheezing Past Medical History Past Medical History: Pneumonia, GERD, Hypothyroidism, Anxiety, Bipolar, Depr ession Past Surgical History: noncontributory Alcohol Use: Rarely Drug Use: marijuana, methamphetamine Lives In: Home Review of Systems ROS As stated above in the HPI, otherwise all systems are reviewed and negative. Physical Exam Physical Exam Vital Signs: Temperature: 98.2, Source: Temporal, Heart Rate: 87, Respiratory Rate: 18, BP: 146/87, Pulse Oximetry: 96, Weight: 124.300 Oxygen Flow Rate: 0 Physical Exam VITALS: Reviewed and as above. GENERAL: Alert, nontoxic appearing, no apparent distress. RESPIRATORY: No increased work of breathing, no respiratory distress, speaking in full clear sentences Progress Results/Orders Results/Orders Vital Signs 08/04/25 08/04/25 15:05 15:47 Temp 98.2 Pulse 87 93 Resp 18 18 B/P (MAP) 146/87 Pulse Ox 96 96 O2 Flow Rate 0 Medical Decision Making Findings This 54-year-old female presented due to concern by her [employer] worker for low SpO2, patient reported no shortness of breath or other symptoms, patient is not hypoxic in triage with SpO2 of 96% on room air interpreted as normal. I suspect that an equipment malfunction or miss use as likely cause of low SpO2 reading by [employer] worker. Patient is otherwise well-appearing reported no other acute symptoms or concerns in his appropriate for outpatient follow up. Patient provided home care instructions, follow up instructions, and return to care precautions which he verbalized understanding of. Differential Diagnosis Hypoxia, pneumonia pulmonary embolism, respiratory failure, respiratory distress, asthma exacerbation, allergic reaction, anaphylaxis, pneumothorax, hemothorax Departure Time of Disposition: 15:18 Disposition: 01 HOME / SELF CARE / HOMELESS Impression: Primary Impression: General medical exam Condition: Improved Additional Instructions: Your oxygen level was within normal limits, please discuss with your home care provider this finding as they may need to recalibrate their pulse oximeter. Please follow up with your primary care provider in the next few days. Please return to the emergency department for any new or worsening concerning symptoms. Referrals: NO PRIMARY CARE PROVIDER (PCP) Education Educated: Patient Educated regarding: diagnosis, treatment, prognosis, need for follow up Signature Scribe Signature: No scribe Attestation: The note accurately reflects work and decisions made by me.ZINA Zamora 08/05/25 11:53 PIERCE DOYLE Aug 04, 2025 15:15
[2025-08-04 15:47] VITALS: PULSE 93; RESP 18; O2SAT 96
== END 2025-08-04 15:50 | disposition home or self-care (01) ==
LOC: ER 14:53
DX: Z00.00 Encounter for general adult medical examination without abnormal findings (principal); E03.9 Hypothyroidism, unspecified; F31.9 Bipolar disorder, unspecified; F41.9 Anxiety disorder, unspecified; F15.90 Other stimulant use, unspecified, uncomplicated; F12.90 Cannabis use, unspecified, uncomplicated; Z87.891 Personal history of nicotine dependence
CPT/HCPCS: 99282

== ENCOUNTER 2025-09-06 06:15 | Inpatient (IN) | payer MEDICAID ==
[~2025-09-06] VITALS: Ht 162.6 cm; Wt 136.6 kg
--- NOTE | 2025-09-06 06:20 | ELECTROCARDIOGRAPH REPORT ---
[facility] Test Date: 2025-09-06 Test Time: 06:18:34 Pat Name: STEPHANIE KNIGHT Department: EMERGENCY ROOM Room: Gender: F [employer] Farmer: ANIBAL : 1970 Requested By: IGNI SANTIAGO Order Number: [id number] Reading MD: Measurements Intervals [place] Rate: 102 P: 11 PA: 157 QRS: -55 QRSD: 105 T: 7 QT: 380 QTc: 496 Interpretive Statements Sinus tachycardia Left axis deviation Low voltage, precordial leads Abnormal R-wave progression, late transition Consider inferior infarct Baseline wander in lead(s) I,II,III,aVR,aVF,V2,V3,V4,V5 Please click the below link to view image of tracing.
--- NOTE | 2025-09-06 06:49 | Physician Documentation ---
History of Present Illness ~ Chief Complaint: Shortness of Breath Stated Complaint: SOB Time Seen by MD: 06:30 OK to notify your PCP?: Yes Primary Medical Doctor: MD ANDRES AT [facility] Source: patient Mode of Arrival: POV Exam Limitations: no limitations HPI Chief Complaint: Multiple complaints Caveat: None Independent Historians: None History of Present Illness: Patient is a 54-year-old woman with hypothyroidism who comes in with multiple chronic complaints: Shortness a breath, wetting the bed at night, not being able to sleep, nightmares, fevers Symptoms have been ongoing for over a month. Patient has seen her primary care doctor in his been seen once at [facility] approximately three weeks ago. What seems to bring the patient in today is that she has not been able to sleep for five days because of nightmares. And waking up. Patient states that she has had an 11 lb weight gain. Patient was recently on Lasix but no longer taking Lasix. Patient denies any cough. Patient denies any chest pain. No nausea vomiting diarrhea. No abdominal pain. Patient is waiting to have a sleep study performed to evaluate for sleep apnea. Referral has been sent she has not had anything scheduled. Review of systems: All systems were reviewed and are negative except for what is indicated in the history of present illness. Past Medical History: Hypothyroidism Past Surgical History: Noncontributory Social History: Tobacco use, marijuana use, denies other drug use, no alcohol use Medications: Reviewed as documented Nursing Notes Allergies: Reviewed as documented in Nursing Notes Medication Reconciliation Allergies: Coded Allergies: No Known Drug Allergies (Verified Allergy, Unknown, 09/06/25) Scheduled Alprazolam (Xanax), 1 MG PO TID Atorvastatin Calcium (Atorvastatin Calcium), 20 MG PO DAILY Cyclobenzaprine* (Cyclobenzaprine*), 10 MG PO Q8H Cyclobenzaprine* (Cyclobenzaprine*), 1 TAB PO Q8H Gemfibrozil (Lopid), 600 MG PO BID Levothyroxine Sodium (Levothyroxine Sodium), 100 MCG PO DAILY@07 Lidocaine (Lidocaine), 2 PATCH TP DAILY Pantoprazole Sodium (Pantoprazole Sodium), 40 MG PO BKF Paroxetine HCl (Paroxetine HCl), 40 MG PO DAILY Prednisone (Prednisone), 10 MG PO QAM@0830 Scheduled PRN Albuterol Sulfate/Budesonide (Airsupra 90-80 Mcg Inhaler), 2 PUFFS INH Q4H PRN for SOB or wheezing Past Medical History Past Medical History: Pneumonia, GERD, Hypothyroidism, Anxiety, Bipolar, Depression Past Surgical History: noncontributory Alcohol Use: Rarely Drug Use: marijuana, methamphetamine Lives In: Home Review of Systems All Other Systems at this time: Reviewed and Negative ROS Patient denies any other acute symptoms other than above. All other systems are negative Physical Exam Vital Signs: RN Vital Signs have been reviewed: Yes, Temperature: 96.9, Source: Temporal, Heart Rate: 84, Respiratory Rate: 20, BP: 150/103, Pulse Oximetry: 97, Weight: 136.600 Oxygen Flow Rate: 0 Pulse Oximetry Reflects: adequate oxygenation Physical Exam General Appearance: Chronically ill-appearing, morbidly obese HEENT: Normal OP, moist oral mucosa, PERRL, EOMI Neck: supple, normal ROM, trachea midline Pulmonary: No respiratory distress, CTA, BS equal Cardiac: RRR, no murmur, rub or gallop, GI: nondistended, soft, nontender, normal bowel sounds, no guarding, no rebound Extremities: normal ROM, 1+ nonpitting pedal edema, non-tender Skin: intact, dry, warm, no rashes Neuro: AAOx3, speech is clear, no focal motor weakness Psych: normal affect, good eye contact, no apparent hallucination, normal speech Progress Results/Orders Results/Orders Orders - GINI SANTIAGO MD Chest,Single View (09/06/25 06:16) Monitor (09/06/25 06:16) Saline Lock (09/06/25 06:16) Oxygen (09/06/25 06:16) Hs Troponin I W Calculations (09/06/25 09:16) Completed Orders - GINI SANTIAGO MD Chest,Single View (09/06/25 06:16) Cbc/Diff (09/06/25 06:16) PBNP (09/06/25 06:16) Electrocardiogram (09/06/25 06:16) Hs Troponin I W Calculations (09/06/25 06:16) Hs Troponin I W Calculations (09/06/25 08:16) CMP (09/06/25 06:23) MG (09/06/25 06:23) TSH (09/06/25 06:23) Aspirin 81mg Chew Tablet (Aspirin 81mg C (09/06/25 07:50) Medications Received in ER Medications (Trade) Dose Ordered Sig/[place] Route PRN Reason Start Time Stop Time Status Last Admin Dose Admin (aspirin 81MG chew tablet) 324 mg ONCE ONCE PO 09/06/25 07:50 09/06/25 07:51 DC 09/06/25 07:59 324 MG Vital Signs 09/06/25 09/06/25 09/06/25 06:22 07:31 08:44 Temp 96.9 Pulse 84 54 84 Resp 20 18 18 B/P (MAP) 150/103 138/98 (111) 102/63 (76) Pulse Ox 97 97 97 O2 Flow Rate 0 Laboratory Tests Test 09/06/25 06:23 09/06/25 08:02 White Blood Count 12.0 H Red Blood Count 4.36 Hemoglobin 12.1 Hematocrit 36.5 Mean Corpuscular Volume 83.7 Mean Corpuscular Hemoglobin 27.7 Mean Corpuscular Hemoglobin Concent 33.1 Red Cell Distribution Width 16.4 H Platelet Count 400 Mean Platelet Volume 7.6 Neutrophils (%) (Auto) 69.9 Lymphocytes (%) (Auto) 21.7 Monocytes (%) (Auto) 4.1 Eosinophils (%) (Auto) 2.9 Basophils (%) (Auto) 1.4 H Neutrophils # (Auto) 8.4 H Lymphocytes # (Auto) 2.6 Monocytes # (Auto) 0.5 Eosinophils # (Auto) 0.3 Basophils # (Auto) 0.2 CBC Comment Sodium Level 141 Potassium Level 3.9 Chloride Level 105 Carbon Dioxide Level 27.6 Anion Gap 8 Blood Urea Nitrogen 14 Creatinine 0.78 Estimated GFR/1.73 m2 77 BUN/Creatinine Ratio 17.9 Glucose Level 126 H Calcium Level 8.7 Magnesium Level 1.8 Total Bilirubin 0.2 Aspartate Amino Transf (AST/SGOT) 18 Alanine Aminotransferase (ALT/SGPT) 18 Alkaline Phosphatase 140 H Troponin I High Sensitivity 100 *H 101 *H Pro-B-Type Natriuretic Peptide 230 H Total Protein 7.5 Albumin 3.1 L Globulin 4.4 H Albumin/Globulin Ratio 0.7 L Thyroid Stimulating Hormone (TSH) 34.98 H Chemistry Comments Troponin I High Sens Percent Delta 1 Troponin I Hi Sens Absolute Change 1 Medical Decision Making Additional info obtained from: old records Findings Differential diagnosis includes but is not limited to: Acute coronary syndrome, congestive heart failure, sleep apnea, urinary tract infection, pneumonia EKG independent interpretation: Performed at 6:18 a.m.. Sinus tachycardia, h eart rate 102, left axis deviation, low-voltage Chest x-ray, single view, indication: Shortness a breath Independent interpretation: Lungs are clear, normal mediastinum, normal cardiac silhouette. No acute cardiopulmonary process. Laboratory data independent interpretation: CBC: [place] [id number], CMP: Unremarkable 1st troponin: 100 Pro BNP: 230 Urinalysis: 1st troponin: 100 2nd troponin: 101 TSH: Elevated at 34.98 Emergency department course/medical decision-making: Patient is a 54-year-old woman who presents with complaints of shortness a breath and other symptoms that do not appear to be acute. Patient is most co ncerned about her inability to sleep over the last five days. There is no evidence of pneumonia or acute congestive heart failure on the chest x-ray. Patient is mildly hypertensive but vital signs are otherwise unremarkable. Patient's troponins are mildly elevated at 100 and 101. Patient is given aspirin 324 mg. We will recommend admission for further cardiac workup. There was no evidence of congestive heart failure. Patient is hypothyroid with an elevated TSH. Test results treatment plan and need for admission discussed with the patient. She is agreeable. Consultation/communications: 8:48 a.m.: Case reviewed with nurse practitioner Cora. She will evaluate the patient for admission. Heart Score: 4 Differential Dx:Considerations: Include: other (See above) Departure Time of Disposition: 08:51 Disposition: ADMITTED INPATIENT Admitted to Inpatient Unit: to hospitalist Admission Level of Care: Med/Surg with Tele Impression: Primary Impression: Dyspnea Qualified Codes: R06.00 - Dyspnea, unspecified Additional Impressions: Elevated troponin Hypothyroidism Qualified Codes: E03.9 - Hypothyroidism, unspecified Obesity Qualified Codes: E66.813 - Obesity, class 3; Z68.43 - Body mass index [BMI] 50.0-59.9, adult Condition: Fair Education Educated: Patient Educated regarding: diagnosis, treatment Signature Scribe Signature: No scribe Attestation: No scribe GINI SANTIAGO MD Sep 06, 2025 06:49
[2025-09-06 06:55] LABS: CREATININE 0.78 MG/DL (0.40-0.90); PRO BRAIN NATRIURETIC PEPTIDE 230 PG/ML (0-125); TOTAL CARBON DIOXIDE 27.6 MMOL/L (24-32); eCRCL 72 ML/MIN; eGFR 77 ML/MIN
--- NOTE | 2025-09-06 06:56 | RADIOLOGY REPORT ---
CHEST RADIOGRAPH Indication: CP Technique: Single frontal view of the chest was obtained Comparison: DI CHEST,SINGLE VIEW on DOS: 02/10/25 FINDINGS: Lines and Tubes: None Lungs: No focal consolidation. Pleura: No effusion. No pneumothorax. Cardiomediastinal contours: Unremarkable Bones: No acute osseous abnormality. IMPRESSION: No acute cardiopulmonary disease.
[2025-09-06 07:02] LABS: MEAN PLATELET VOLUME 7.6 FL (7.4-10.4); RED CELL DISTRIBUTION WIDTH 16.4 % (11.5-14.5)
[2025-09-06] MEDS ORDERED: magnesium sulf-water 2g/50mL 50 ML IV PRN (08:50)
[2025-09-06] MEDS ORDERED: magnesium hydroxide 30ml (MOM) UD suspension PO PRN (08:50)
[2025-09-06] MEDS ORDERED: ondansetron/PF 4mg/2ml inj IV PRN (08:50)
[2025-09-06] MEDS ORDERED: mag hydrox/Alum hydrox/simeth 30ml oral suspension PO PRN (08:50)
[2025-09-06] MEDS ORDERED: potassium Cl 20 mEq SR tablet PO PRN ×2 (08:50)
[2025-09-06] MEDS ORDERED: potassium Cl 40MEQ/1/2NS 520ml 520 ML IV PRN (08:50)
[2025-09-06] MEDS ORDERED: HYDROcodone/acetaminophen 10/325mg tab PO PRN (08:50)
[2025-09-06] MEDS ORDERED: magnesium sulf-water 4G/100mL 100 ML IV PRN (08:50)
[2025-09-06] MEDS: PERFLUTREN PROTEIN-A MICROSPHR (Optison) 0.22 MG/ML 3ML VIAL IV ONE (09:01)
[2025-09-06 09:30] LABS: CHOL/HDL RATIO 4.4 (0.00-4.99); LDL CHOLESTEROL 88 MG/DL (50-100)
[2025-09-06] MEDS ORDERED: CYPR4TAB44 PO (10:09)
[2025-09-06] MEDS ORDERED: hydrALAZINE 20mg/ml inj. IV PRN (11:40)
--- NOTE | 2025-09-06 12:10 | HISTORY AND PHYSICAL ---
History & Physical Providers to CC ~ History of Present Illness Reason for Admit\Complaint: NSTEMI, 1799 History of Present Illness Yamilet Nickerson is a 84-year-old female with a past medical history of hypothyroidism, morbid obesity, PTSD, bipolar disorder, MDD, anxiety disorder who presented to the ED with chief complaint of chronic insomnia, nightmare with associated symptoms of nocturnal urinary incontinence and palpitations x 2 months. Patient reports history of hypothyroidism which was not treated until three weeks ago. Patient reports weight gain of 11 lb x 1 week, chronic intermittent shortness of breath, and bilateral lower extremity edema. Patient reports chronic daily suicidal ideation but denies attempt for suicide. Patient states she is scheduled for sleep study which she still needs to follow-up. Patient reports snoring and intermittent gasping for breath at nighttime. Patient denies prior [place]/CAD, CVA, cardiac arrhythmia, DVT/PE, or GIB. Patient denies chest pain, abdominal pain, n/v/d, dysuria. Patient is to be admitted for further workups and treatment. Allergies: Coded Allergies: No Known Drug Allergies (Verified Allergy, Unknown, 09/06/25) Home Medications Home Medications Active Xanax (Alprazolam) 1 Mg Tablet 1 Mg PO TID 20 Days Levothyroxine Sodium 100 Mcg Tablet 100 Mcg PO DAILY@07 30 Days Paroxetine HCl 20 Mg Tablet 40 Mg PO DAILY 30 Days Airsupra 90-80 Mcg Inhaler (Albuterol Sulfate/Budesonide) 90 Mcg-80 Mcg/Actuation Hfa.aer.ad 2 Puffs INH Q4H PRN 30 Days Reported Cyproheptadine HCl 4 Mg Tablet 1 Tab PO HS Past Medical History Past Medical History Hypothyroidism Morbid obesity Hyperlipidemia Prediabetes Anxiety disorder PTSD Bipolar disorder Suicidal Ideation Nicotine dependent Past Surgical History Surgical History Comment Denies Past Social History Social History Comment Alcohol: Denies Tobacco: Current smoker, 5 pack year history Illicit drug use: Denies Living situation: Lives in [facility] Other than positives in HPI, all 14 review of systems are negative Exam Vitals: Vital Signs Date Time Temp Pulse Resp B/P (MAP) Pulse Ox O2 Delivery O2 Flow Rate FiO2 09/06/25 11:14 85 18 100/62 (75) 98 09/06/25 06:22 96.9 0 General: A&Ox 3, NAD HEENT: Normocephalic, PERRLA Neck: Supple, trachea midline, no JVD Chest: Clear to auscultation bilaterally Cardiovascular: RRR, S1&S2 Abdomen: Soft and nontender Extremities: +3 pitting edema of b/l feet Central Nervous System: CN II-XII intact, no focal deficits Musculoskeletal: No paraspinal muscle tenderness, no muscle spasm Skin: Warm and intact Diagnostic Data Last Recorded Lab Results: 09/06/25 0623 09/06/25 0623 Additional Plan Assessment & Plan NSTEMI likely Type II likely 2/2 below SI Anxiety disorder PTSD Bipolar disorder Class III obesity Prediabetes Hyperlipidemia Hypothyroidism -denies chest pain, EKG sinus at 102bpm no ST elevation/depression; pBNP 230, trops mildly elevated and flat -adjusted dose home levothyroxine, supportive care, nicotine patch, 1799 hold, sitter ordered DVT/VTE prophylaxis: Heparin Code status: Full code I spent a total of 16 minutes on smoking cessation education. I provided extensive counseling regarding smoking cessation. I spent a total of 35 minutes discussing Advanced Care Planning measures with the patient. Advance care planning: Discussed with patient the importance of advance care planning in case of emergent situation. We discussed various resuscitative measures/ ACP with the patient at the time of admission. Patient voiced understanding and patient has decided on a full code status. Date of Service: Sep 06, 2025 Billing Provider: COLE HAIDER Common Visit Codes: 79000-[id number] INP/OBS CARE (HIGH) Secondary Visit Codes: 11307-PXGFN CHNG SMOKING >10MIN, [id number] CARE PLAN 30 MINUTES COLE HAIDER Sep 06, 2025 12:10
[2025-09-06 13:15] VITALS: BP 124/69; PULSE 73; RESP 16; TEMP 98.1; O2SAT 98
[2025-09-06 15:32] VITALS: PULSE 79; RESP 16; O2SAT 99
[2025-09-06] MEDS: furosemide 10 MG/1 ML 10ml inj IV ONE (16:42)
[2025-09-06] MEDS: heparin, porcine 5000 units/ml vial SQ SCH (16:42)
[2025-09-06] MEDS: HYDROcodone/acetaminophen 5mg/325mg tablet PO PRN (16:43)
[2025-09-06] MEDS: nicotine 21mg patch - 24 hr TD ONE (16:45)
[2025-09-06 18:00] VITALS: BP 130/86; PULSE 77; RESP 18; TEMP 97.4; O2SAT 96
--- NOTE | 2025-09-06 18:51 | CARDIOLOGY REPORT ---
APPROVED REPORT EXAM: Comprehensive 2D, Doppler, and color-flow Echocardiogram. Patient Location: ED11 Blood Pressure: 111/62 mmHg Heart Rate: 75 bpm Rhythm: NSR Indications CONGESTIVE HEART FAILURE ELEVATED PROBNP 230 HS TROPONIN 100, 101, 91 SHORTNESS OF BREATH DONOR RELATIONS MANAGER: None PRIOR ECHOCARDIOGRAM: None. 2D Dimensions RVDd 3.5 cm IVSd 1.2 (0.7-1.1cm) LVDd 5.7 cm PWd 1.2 (0.7-1.1cm) IVSs 1.6 (0.8-1.2cm) LVDs 3.6 (2.5-4.0cm) PWs 1.6 (0.8-1.2cm) LVOT Diameter 2.00 (1.8-2.4cm) LVEF(%) 65.0 (>50%) FS (%) 36.1 % SV 103.0 ml CO 15.7 L/min M-Mode Dimensions Left Atrium(MM) 4.76 (2.5-4.0cm) Aortic Root 3.34 (2.2-3.7cm) Aortic Cusp Exc 2.06 (1.5-2.0cm) Aortic Valve AoV Peak Tin. 138.4 cm/s AoV VTI 25.3 cm AO Peak GR. 7.7 mmHg AO Mean GR. 4 mmHg LVOT VTI 17.80 cm LVOT Peak Tin. 105.1 cm/s WU(VTI)/BSA 2.22 cm2/m2 WU (VTI) 2.22 cm2 AV DI 0.70 % Mitral Valve MV E Velocity 68.8 cm/s MV Peak Gr. 3 mmHg MV A Velocity 85.6 cm/s MV PHT 56 ms E/A Ratio 0.8 MVA (PHT) 3.93 cm2 MV VMax 83.1 cm/s Tricuspid Valve TR P. Velocity 150 cm/s RAP ESTIMATE 5 mmHg TR Peak Gr. 9 mmHg RVSP 14 mmHg LEFT VENTRICLE Normal LV size and function. Mild concentric hypertrophy. LVEF is 60-65%. RIGHT VENTRICLE RV is normal size and function. RVSP is 14 mmHg. ATRIA Left atrium is moderately dilated. Right atrium is mildly dilated. AORTIC VALVE Trileaflet AV appears mildly sclerotic without stenosis. No insufficiency. MITRAL VALVE Mild mitral annular calcification. No stenosis. Trace regurgitation. TRICUSPID VALVE TV appears structurally normal with trace regurgitation. PULMONIC VALVE Pulmonic valve is not well visualized. GREAT VESSELS The aortic root is normal in size. The IVC is normal in size and collapses >50% with inspiration. PERICARDIUM Normal pericardium. No effusion. Other Information Study Quality: Fair Technically limited study due to Body habitus. Conclusion Normal LV size and function. Mild concentric hypertrophy. LVEF is 60-65%. RV is normal size and function. RVSP is 14 mmHg. Left atrium is moderately dilated. Right atrium is mildly dilated. Trileaflet AV appears mildly sclerotic without stenosis. No insufficiency. Mild mitral annular calcification. No stenosis. Trace regurgitation. TV appears structurally normal with trace regurgitation. Normal pericardium. No effusion.
[2025-09-06] MEDS: K and/or MAG REPLACEMENT MC SCH (20:00)
[2025-09-06 21:36] VITALS: PULSE 79; O2SAT 99
[2025-09-06 22:00] VITALS: BP 114/80; PULSE 74; RESP 18; TEMP 98.7; O2SAT 95
[2025-09-06] MEDS: docusate sod 100mg capsule PO SCH (22:13)
[2025-09-06 23:33] VITALS: PULSE 80; RESP 11; O2SAT 94
[2025-09-06] MEDS: diazepam inj 5 MG/ML inj. IV PRN (23:35)
[2025-09-07] VITALS (8 sets, daily range): BP systolic 107–133; BP diastolic 52–86; PULSE 57–83; RESP 14–22; TEMP 96.7–98.4; O2SAT 90–98
[2025-09-07 06:21] LABS: MEAN PLATELET VOLUME 7.9 FL (7.4-10.4); RED CELL DISTRIBUTION WIDTH 16.1 % (11.5-14.5)
[2025-09-07 06:38] LABS: CREATININE 0.65 MG/DL (0.40-0.90); TOTAL CARBON DIOXIDE 30.0 MMOL/L (24-32); eCRCL 86 ML/MIN; eGFR > 90 ML/MIN
[2025-09-07] MEDS: aspirin 81mg, enteric-coated 1 TAB TABLET.DR PO SCH (08:32)
[2025-09-07] MEDS: LIOthyronine 25mcg tablet PO SCH (08:33)
[2025-09-07] MEDS: nicotine 21mg patch - 24 hr TD SCH (08:34)
--- NOTE | 2025-09-07 11:46 | RADIOLOGY REPORT ---
NUCLEAR MEDICINE VENTILATION/PERFUSION LUNG SCAN. INDICATION: hypoxia, tachy, sob COMPARISON: None TECHNIQUE: Following intravenous demonstration of 4.8 millicuries of technetium 99m MAA, and inhalation of 43.2 mCi of Tc 99m DTPA scintigrams were obtained in multiple projections of the lungs. FINDINGS: There is normal uptake of radionuclide on both the ventilation and perfusion portions of the examination. No mismatched perfusion defects are demonstrated. Uptake is normally homogeneous. IMPRESSION: Low probability for PE.
--- NOTE | 2025-09-07 12:15 | PROGRESS NOTE ---
Daily Progress Note Providers to CC ~ Antibiotic Timeout Antibiotic Ordered?: No Subjective No acute events overnight. Patient examined at bedside. No new complaints, not in acute distress. Patient denies chest pain, sob, palpitations, abdominal pain, n/v/d. Vss, labs unremarkable. Objective Vital Signs Date Time Temp Pulse Resp B/P (MAP) Pulse Ox O2 Delivery O2 Flow Rate FiO2 09/07/25 10:00 98.2 78 18 123/80 (94) 95 Room Air 09/07/25 03:09 28 09/06/25 15:32 0 Result Diagram: 09/07/2545309/07/25453 Physical Exam General: A&Ox 3, NAD HEENT: Normocephalic, PERRLA Neck: Supple, trachea midline, no JVD Chest: Clear to auscultation bilaterally Cardiovascular: RRR, S1&S2 Abdomen: Soft and nontender Extremities: +2 pitting edema of b/l feet Central Nervous System: CN II-XII intact, no focal deficits Musculoskeletal: No paraspinal muscle tenderness, no muscle spasm Skin: Warm and intact Problem\Assessment\Plan Assessment & Plan NSTEMI likely Type II likely 2/2 below Obesity hypoventilation syndrome SI Anxiety disorder PTSD Bipolar disorder Acute decompensated diastolic heart failure- POA Class III obesity Prediabetes Hyperlipidemia Hypothyroidism -denies chest pain, EKG sinus at 102bpm no ST elevation/depression; pBNP 230, trops mildly elevated and flat ; TTE LVEF 60-65%, RVSP 14mmHg, no significant VHD, VQ scan negative -adjusted dose home levothyroxine, supportive care, nicotine patch, 1799 hold, sitter ordered, pending psych eval DVT/VTE prophylaxis: Heparin Code status: Full code Date of Service: Sep 07, 2025 Billing Provider: COLE HAIDER Common Visit Codes: [id number] INP/OBS CARE(HIGH) COLE HAIDER Sep 07, 2025 12:15
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
[2025-09-08 06:00] VITALS: BP 106/70; PULSE 87; RESP 16; TEMP 98; O2SAT 92
[2025-09-08 06:17] LABS: CREATININE 0.71 MG/DL (0.40-0.90); TOTAL CARBON DIOXIDE 31.7 MMOL/L (24-32); eCRCL 79 ML/MIN; eGFR 86 ML/MIN
[2025-09-08 06:29] LABS: MEAN PLATELET VOLUME 7.7 FL (7.4-10.4); RED CELL DISTRIBUTION WIDTH 16.2 % (11.5-14.5)
[2025-09-08] MEDS ORDERED: ATOR20TA66 PO (07:12)
[2025-09-08] MEDS ORDERED: LEVO125T8 PO (07:12)
[2025-09-08] MEDS ORDERED: ASPI-1071 PO (07:12)
[2025-09-08] MEDS ORDERED: LISI5TAB22 PO (07:12)
--- NOTE | 2025-09-08 07:52 | PROGRESS NOTE ---
Daily Progress Note Providers to CC ~ Antibiotic Timeout Antibiotic Ordered?: No Subjective No acute events overnight. Patient examined at bedside. No new complaints, not in acute distress. Patient denies chest pain, sob, palpitations, abdominal pain, n/v/d. Vss, labs unremarkable. Patient is medically cleared for [facility] evaluation. Objective Vital Signs Date Time Temp Pulse Resp B/P (MAP) Pulse Ox O2 Delivery O2 Flow Rate FiO2 09/08/25 06:00 98.0 87 16 106/70 (82) 92 Room Air 09/07/25 20:17 28 09/07/25 20:00 0.0 Result Diagram: 09/08/25 0453 09/08/25 045 Physical Exam General: A&Ox 3, NAD HEENT: Normocephalic, PERRLA Neck: Supple, trachea midline, no JVD Chest: Clear to auscultation bilaterally Cardiovascular: RRR, S1&S2 Abdomen: Soft and nontender Extremities: +2 pitting edema of b/l feet Central Nervous System: CN II-XII intact, no focal deficits Musculoskeletal: No paraspinal muscle tenderness, no muscle spasm Skin: Warm and intact Problem\Assessment\Plan Assessment & Plan NSTEMI likely Type II likely 2/2 below Obesity hypoventilation syndrome SI Anxiety disorder PTSD Bipolar disorder Acute decompensated diastolic heart failure- POA Class III obesity Prediabetes Hyperlipidemia Hypothyroidism -denies chest pain, EKG sinus at 102bpm no ST elevation/depression; pBNP 230, trops mildly elevated and flat ; TTE LVEF 60-65%, RVSP 14mmHg, no significant VHD, VQ scan negative -adjusted dose home levothyroxine, supportive care, nicotine patch, 1799 hold, sitter ordered, pending psych eval 09/08: Patient is medically cleared for [facility] evaluation. DVT/VTE prophylaxis: Heparin Code status: Full code Date of Service: Sep 08, 2025 Billing Provider: COLE HAIDER Common Visit Codes: NOT BILLABLE COLE HAIDER Sep 08, 2025 07:52
[2025-09-08 08:00] VITALS: RESP 16; O2SAT 94
[2025-09-08 10:00] VITALS: BP 103/77; PULSE 72; RESP 20; TEMP 98.5; O2SAT 92
[2025-09-08] MEDS ORDERED: SITA50TA PO (13:32)
[2025-09-08] MEDS ORDERED: METF-1203 PO (13:32)
--- NOTE | 2025-09-08 13:32 | DISCHARGE SUMMARY ---
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 [place] Complications: None Condition on DC: Stable New Medications: Atorvastatin Calcium (Atorvastatin Calcium) 20 Mg Tablet 20 MG PO HS for 90 Days, #90 TAB Lisinopril (Lisinopril) 5 Mg Tablet 1 TAB PO DAILY for 90 Days, #90 TAB 0 Refills Metformin HCl (Metformin HCl) 500 Mg Tablet 1 TAB PO DAILY for 30 Days, #30 TAB Sitagliptin Phosphate (Januvia) 50 Mg Tablet 1 TAB PO DAILY for 30 Days, #30 TAB 0 Refills Aspirin (Ecotrin*) 81 Mg Tablet.dr 1 TAB PO DAILY for 30 Days, #30 TAB.SR Levothyroxine Sodium (Levothyroxine Sodium) 125 Mcg Tablet 125 MCG PO DAILY@07 for 90 Days, #90 TAB Continued Medications: Albuterol Sulfate/Budesonide (Airsupra 90-80 Mcg Inhaler) 90 Mcg-80 Mcg/Actuation Hfa.aer.ad 2 PUFFS INH Q4H PRN for SOB or wheezing for 30 Days, #1 INHALER Alprazolam (Xanax) 1 Mg Tablet 1 MG PO TID for 20 Days, #60 TAB Cyproheptadine HCl (Cyproheptadine HCl) 4 Mg Tablet 1 TAB PO HS for nightmares Paroxetine HCl (Paroxetine HCl) 20 Mg Tablet 40 MG PO DAILY for 30 Days, #60 TAB Discharge Summary: History of Present Illness Yamilet Nickerson is a 54-year-old female with a past medical history of hypothyroidism, morbid obesity, PTSD, bipolar disorder, MDD, anxiety disorder who presented to the ED with chief complaint of chronic insomnia, nightmare with associated symptoms of nocturnal urinary incontinence and palpitations x 2 months. Patient reports history of hypothyroidism which was not treated until three weeks ago. Patient reports weight gain of 11 lb x 1 week, chronic intermittent shortness of breath, and bilateral lower extremity edema. Patient reports chronic daily suicidal ideation but denies attempt for suicide. Patient reports intermittent cessation of breathing and snoring at nighttime states she is scheduled for sleep study which she still needs to follow-up. Patient reports snoring and intermittent gasping for breath at nighttime. Patient denies prior [place]/CAD, CVA, cardiac arrhythmia, DVT/PE, or GIB. Patient denies chest pain, abdominal pain, n/v/d, dysuria. Patient is to be admitted for further workups and treatment. Hospital Course Diagnostic findings revealed hypothyroidism, mildly elevated and flat troponin series, EKG sinus 102pbm without ST elevation/depression, unremarkable pBNP, negative V/Q scan. Patient was put on 179 hold with a sitter and was treated with CPAP at night, antianxiolytics, and adjusted home dose of levothyroxine. Case was consulted with psychiatrist. Patient did not experience further complications throughout the entire hospital stay and made a good recovery. Patient was seen and examined on the day of discharge. Patient was evaluated by [facility] [place] beam builder Kim and was released from legal hold. On day of discharge, vss and labs unremarkable. All labs, diagnostic workups, discharge plan discussed with patient in details during visit before discharge. All questions and concerns answered to the best of my professional knowledge. Patient is to be discharged to home to self and to follow-up with PCP within 2 weeks. Patient was instructed to follow-up for polysomnography. 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
== END 2025-09-08 14:10 | disposition home or self-care (01) | DRG 194 ==
LOC: ER 06:16 → ED HOLD 08:56 → ORTHO 4S 12:53
PROVIDERS: ADMIT Nurse Practitioner Family; ATTEND Nurse Practitioner Family
PROC: 5A09357 Assistance with Respiratory Ventilation, Less than 24 Consecutive Hours, Continuous Positive Airway Pressure (ICD-10-PCS; principal; 2025-09-06)
PROC: CB121ZZ Planar Nuclear Medicine Imaging of Lungs and Bronchi using Technetium 99m (Tc-99m) (ICD-10-PCS; 2025-09-07)
DX: I50.33 Acute on chronic diastolic (congestive) heart failure (principal); I21.A1 Myocardial infarction type 2; E66.2 Morbid (severe) obesity with alveolar hypoventilation; R45.851 Suicidal ideations; F17.210 Nicotine dependence, cigarettes, uncomplicated; E78.5 Hyperlipidemia, unspecified; E03.9 Hypothyroidism, unspecified; K21.9 Gastro-esophageal reflux disease without esophagitis; F31.9 Bipolar disorder, unspecified; F34.1 Dysthymic disorder; F41.1 Generalized anxiety disorder; F60.3 Borderline personality disorder; R73.03 Prediabetes; F43.10 Post-traumatic stress disorder, unspecified; Z59.00 Homelessness unspecified; Z68.43 Body mass index [BMI] 50.0-59.9, adult; Z79.899 Other long term (current) drug therapy
CPT/HCPCS: 36415; 71045; 78582; 80053; 80061; 83036; 83735; 83880; 84439; 84443; 84480; 84484; 85025; 87081; 93005; 93306; 94660; 94760; 99285; A9539; A9540; G0378; J1644; J1938; J3360